=== PATIENT | male | born 1940 | race Caucasian/White ===

== ENCOUNTER 2018-03-11 07:06 | Inpatient (IN) | payer OTHER, SELFPAY ==
[2018-03-11] VITALS (15 sets, daily range): BP systolic 103–148; BP diastolic 53–89; PULSE 70–90; RESP 13–30; TEMP 36.1–36.8; O2SAT 92–99; BMI 22.4; BMI 21.2; BMI 21.3
--- NOTE | 2018-03-11 07:19 | EKG12_ITS ---
Test Reason : SOB Blood Pressure : / mmHG Vent. Rate : 076 BPM Atrial Rate : 076 BPM P-R Int : 166 ms QRS Dur : 076 ms QT Int : 390 ms P-R-T Axes : 004 054 049 degrees QTc Int : 438 ms Normal sinus rhythm Normal ECG Confirmed by ARMANDO ALFRED, NIK ([id number]), multimedia editor MURPHY BROWN ([id number]) on 03/13/2018 3:22:38 PM Referred By: RUBEN Confirmed By:NIK ROBERTS MD
--- NOTE | 2018-03-11 07:20 | ED.VISSUMM ---
- ER Visit Summary Date of Service: 03/11/18 Chief Complaint: [Shortness of breath] History of Present Illness: The patient is a 77 M [who presents the emergency department with 2 weeks of worsening shortness of breath. He has asthma and COPD. He wakes up gasping for air. He has been using a DuoNeb every 2 hours. He gets a brief period of relief and then it comes back again. He does not wear oxygen at home. He has been using Qvar as well. He has high blood pressure history of prostate cancer and cataract surgery 2 weeks ago. He does not smoke.] Physical Examination: [] Afebrile respiratory rate 30 pulse ox 93% on room air 96% on 2 L WN WD NAD PERRL EOMI MMM NECK supple and nontender, no masses RRR no murmur rub or gallop, no peripheral edema, symmetric radial pulses Patient has mild accessory muscle use, he has mild tachypnea, he has slightly diminished breath sounds with inspiratory and expiratory wheezing ABDOMEN is soft and nontender, normal bowel sounds, no distension, no rebound or guarding SKIN is warm and dry no rashes Alert and Oriented x3, CN II-XII in tact, no motor or sensory deficits, gait normal No lymphadenopathy Test Results: [] Emergency Department Course and Treatment: [Patient was given DuoNeb and 2 albuterol's. He was given Solu-Medrol. Screening labs show a mild leukopenia and anemia. Chest x-ray shows no acute process. Patient has no infectious symptoms. He has been doing his nebulizers every 2 hours at home he came in with mild respiratory distress. I think that he requires admission at this time. Spoke with the hospitalist to evaluate the patient for admission.] Treatment Plan: [] Disposition: [Admit] Impression: [COPD exacerbation] This note was generated with [employer] dictation software. It may contain incorrect words, spelling, and punctuation that were not noted in review of the chart prior to signing ED Disposition - Plan for ED Patient: Chief Complaint: Shortness of Breath
[2018-03-11] MEDS: Albuterol 2.5 MG/3 ML VIAL.NEB. INHALATION ×3 (07:29)
[2018-03-11] MEDS: Ipratropium/Albuterol Sulfate 3 ML AMPUL.NEB INHALATION ×5 (07:29→22:57)
[2018-03-11] MEDS: MethylPREDNISolone 125 MG/2 ML Vial IV (07:34)
[2018-03-11 07:40] LABS: Absolute Lymphocyte Count 0.66 X10^3/ul (0.83-4.51); Absolute Neutrophil Count 2.4 X10^3/uL (2.0-7.7); Basophil# 0.02 X10^3/uL; Basophil% 0.5 % (0-1); Eosinophil# 0.58 X10^3/uL; Eosinophils% 13.9 % (0-5); Hematocrit 37.6 % (40-54); Hemoglobin 12.7 g/dl (13.0-16.5); Lymphocyte # 0.66 X10^3/ul (4.0); Lymphocyte % 15.8 % (19-41); Mean Corp Hgb Conc 33.8 g/gl (32-36); Mean Corpuscular Hgb 31.1 pg (27.0-32.0); Mean Corpuscular Volume 92.2 fL (80-94); Mean Platelet Vol. 9.5 fl (6.2-12.0); Monocyte# 0.48 X10^3/uL; Monocyte% 11.5 % (0-10); Neutrophil # 2.43 X10^3/uL (2.7-7.7); Neutrophil % 58.1 % (47-70); Platelet Count 193 K/mm3 (150-450); RBC Distribution Width CV 12.4 % (11.6-14.6); Red Blood Count 4.08 M/mm3 (4.6-6.2); White Blood Count 4.2 K/mm3 (4.4-11.0)
[2018-03-11 07:43] LABS: POSITIVE COUNT NO; POSITIVE DIFFERENTIAL NO; POSITIVE MORPHOLOGY NO
[2018-03-11 07:54] LABS: Anion Gap 10 (5-15); BUN 18 mg/dL (7-18); BUN/Creat Ratio 15.9 RATIO (10-20); Calcium,Total 8.5 mg/dL (8.5-10.1); Chloride 101 mmol/L (98-107); Creatinine, Serum 1.13 mg/dL (0.70-1.30); EST Glomerular Filtration Rate 67 mL/min (>60); Est Glom Filt Rate - Afr Amer 81 mL/min (>60); Estimated Creatinine Clearance 47.42 ml/min; Glucose 145 mg/dL (74-106); Potassium 4.1 mmol/L (3.5-5.1); Sodium Level 135 mmol/L (136-145)
--- NOTE | 2018-03-11 08:10 | RAD_ITS ---
STUDY: X-RAY CHEST REASON FOR EXAM: Male, 77 years old. Cough. Shortness of breath. TECHNIQUE: PA and lateral views. COMPARISON: None. FINDINGS: All pulmonary hyperinflation with flattening of the hemidiaphragms suggestive of COPD. No suspicious pulmonary nodules or infiltrates. There is no demonstrated pleural abnormality. Normal size heart. Normal mediastinum and jf. Normal visualized pulmonary arteries. Normal visualized aortic arch and descending thoracic aorta. Mild anterior wedging of T8 down to T12 vertebral bodies may be secondary to remote injury. Normal visualized ribs, clavicles, and shoulders. There is no demonstrated abnormality of the visualized soft tissue structures of the upper abdomen. RAD/Chest PA and Lateral IMPRESSION: 1. No acute cardiopulmonary pathology. 2. COPD. 3. Mild anterior wedging of T8 down to T12 vertebral bodies may be secondary to remote injury. Electronically Signed: Cachorro Barber MD at 9:42 EDT , Service support ,
--- NOTE | 2018-03-11 08:54 | HP.PCM_ITS ---
Problem List (1) Asthmatic bronchitis Status: Acute (2) Asthma Status: Chronic Qualifiers: Asthma severity: moderate (3) Hypertension Status: Chronic Qualifiers: Hypertension type: essential hypertension Qualified Code(s): I10 - Essential (primary) hypertension History of Present Illness Date of Admission: 03/11/18 Chief Complaint: Shortness of breath The patient is a 77 year old M past medical history significant for hypertension , moderate persistent asthma who presented with shortness of breath. Patient symptoms started 2 days prior to coming in. He had apparently uses home treatment without much improvement. In view of worsening symptoms patient presented to the emergency department.. In the emergency department patient was found to be significantly tachypneic did receive aerosol treatment without much improvement decision was therefore made to admit patient for subsequent management in the hospital. Past Medical History Past Medical History (Chronic Problems): Chronic Problems Asthma (Chronic) Hypertension (Chronic) Allergies acetaminophen [From Tylenol] Allergy (Verified 03/11/18 07:10) Unknown codeine Allergy (Verified 03/11/18 07:10) Unknown levofloxacin [From Levaquin] Allergy (Verified 03/11/18 07:10) Unknown Tetracyclines Allergy (Verified 03/11/18 07:10) Unknown Home Medications: Ambulatory Orders Medication Instructions Recorded Albuterol IH (ProAir) [Proair Hfa 2 puff INHALATION Q4H PRN PRN 03/11/18 (SP)Vent Pts] Beclomethasone Diprop Inhaler 1 puff INHALATION BID 03/11/18 [Qvar 80 Mcg Inhaler] Ketorolac Tromethamine [Acular LS] 1 drop LEFT EYE 4X/DAY 03/11/18 Losartan Potassium [Cozaar] 50 mg PO DAILY 03/11/18 Lives: Spouse/ Significant Other Smoking Status: Never smoker - *Family History Maternal History Items: No pertinent history Review of Systems Constitutional: Denies: Anorexia, Chills, Fever, Night Sweats, Weight Change HEENT: Denies: Head Aches, Sinus Congestion, Sinus Drainage Cardiovascular: Denies: Chest Pain, Orthopnea, Palpitations, Paroxysmal Noc. Dyspnea Respiratory: Reports: Shortness of Breath, Shortness of breath upon exertion, Wheezing. Denies: Cough Gastrointestinal: Denies: Abdominal Pain, Hematemesis, Hematochezia, Nausea, Melena, Vomiting Genitourinary: Denies: Dysuria, Frequency, Hematuria, Urgency Musculoskeletal: Denies: Joint Pain, Joint Tenderness Skin: Denies: Rash Neurological: Denies: Focal weakness, Numbness, Tingling Psychiatric: Denies: Homicidal Ideations, Suicidal Ideations Hematologic/ Lymphatic: Denies: Easy Bruising, Easy Bleeding VTE Information - Inpt Only VTE Present on Admission: No VTE Mechan Device Prophylaxis: Knee High KITA Hose VTE Pharm Prophylaxis ordered?: Yes Patient Problems: Active and Suspected Problems Asthmatic bronchitis (Acute) Objective: GENERAL: dyspnea HEENT: Clear conjunctiva, NECK; supple, normal thyroid, no distended JVD. CHEST: Markedly diminished to auscultation with bilateral wheezing HEART: Regular S1 S2, no audible murmurs ABDOMEN: soft, non-tender, normoactive bowel sounds, RECTAL: deferred EXTREMITIES: No edema, no clubbing, no cyanosis. 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 SKIN: No Rash - Physical Exam Vital Signs Temp Pulse Resp BP Pulse Ox 97.0 F L 70 13 103/78 98 03/11/18 07:08 03/11/18 08:47 03/11/18 08:47 03/11/18 08:47 03/11/18 08:47 Oxygen Flow Rate (L/min) 2 Oxygen Delivery Method Nasal Cannula Weight: 61.235 kg Body Mass Index (BMI) 22.4 Laboratory Tests Past 24 Hrs 03/11/18 03/11/18 07:30 07:30 WBC 4.2 L RBC 4.08 L Hgb 12.7 L Hct 37.6 L MCV 92.2 MCH 31.1 MCHC 33.8 RDW 12.4 RDW Differential 41.0 Plt Count 193 MPV 9.5 Immature Gran % (Auto) 0.200 Neut % (Auto) 58.1 Lymph % (Auto) 15.8 L Bleckley % (Auto) 11.5 H Eos % (Auto) 13.9 H Baso % (Auto) 0.5 Absolute Neuts (auto) 2.4 Absolute Lymphs (auto) 0.66 L Total Counted Not Reportable Sodium 135 L Potassium 4.1 Chloride 101 Carbon Dioxide 24.0 Anion Gap 10 BUN 18 Creatinine 1.13 Estim Creat Clear Calc 47.42 Est GFR (MDRD) Af Amer 81 Est GFR (MDRD) Non-Af 67 BUN/Creatinine Ratio 15.9 Glucose 145 H Calcium 8.5 Assessment/Plan All Active Problems Asthmatic bronchitis (Acute) Patient is a 77-year-old gentleman presented with progressive shortness of breath 1. Acute asthmatic bronchitis exacerbation: Patient has been admitted to regular nursing floor managed with systemic steroid, bronchodilator therapy as well as antibiotics. Patient was placed on oxygen titrated to keep oxygen saturation greater than 90 2. Hypertension-blood pressure controlled, home medications continued with dose adjustment as needed 3. Mild intermittent asthma patient is scheduled to follow-up with pulmonary medicine as outpatient 4. DVT prophylaxis SC Lovenox Code Visit Inpatient E&M: 12728 Subs Hosp L3
--- NOTE | 2018-03-11 09:02 | NURSING ---
ER charge nurse informed ok for transfer to unit.
[2018-03-11] MEDS: guaiFENesin 1,200 MG Tablet 1200 MG PO ×2 (12:04→21:36)
[2018-03-11] MEDS: Enoxaparin 40 MG/0.4 ML Syringe SC (12:05)
[2018-03-12] VITALS (9 sets, daily range): BP systolic 121–134; BP diastolic 57–77; PULSE 55–80; RESP 16–22; TEMP 36.7–36.9; O2SAT 94–96
[2018-03-12] MEDS: Ipratropium/Albuterol Sulfate 3 ML AMPUL.NEB INHALATION ×5 (02:42→20:41)
[2018-03-12] MEDS: 0.9% NaCl Peripheral Flush Adult/Peds IV ×3 (06:12→13:15)
[2018-03-12] MEDS: Acetaminophen 325 MG Tablet 650 MG PO (06:30)
[2018-03-12] MEDS: guaiFENesin 1,200 MG Tablet 1200 MG PO ×2 (07:36→22:03)
[2018-03-12] MEDS: Losartan Potassium 50 MG Tablet PO (07:36)
--- NOTE | 2018-03-12 08:18 | PN_ITS ---
Patient Problems: Active and Suspected Problems Asthmatic bronchitis (Acute) Subjective: Patient is a 77-year-old gentleman presented with progressive shortness of breath he should complains of having had episodes of respiratory distress during the evening. Did discuss with patient possibility of being discharged home tomorrow 03/13/2018, if his condition remains stable Objective: GENERAL: dyspnea HEENT: Clear conjunctiva, NECK; supple, normal thyroid, no distended JVD. CHEST: Markedly diminished to auscultation with bilateral wheezing HEART: Regular S1 S2, no audible murmurs ABDOMEN: soft, non-tender, normoactive bowel sounds, RECTAL: deferred EXTREMITIES: No edema, no clubbing, no cyanosis. 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 SKIN: No Rash Vitals/I&O's: Vital Signs Temp Pulse Resp BP Pulse Ox 98.4 F 72 16 127/68 H 95 03/12/18 07:29 03/12/18 07:29 03/12/18 07:29 03/12/18 07:29 03/12/18 07:29 Oxygen Flow Rate (L/min) 2 Oxygen Delivery Method Room Air Weight: 57.9 kg Body Mass Index (BMI) 21.2 Intake and Output for Last 24 Hours 03/10/18 03/11/18 03/12/18 23:59 23:59 23:59 Intake Total 863 / 863 760 / 760 Balance 863 / 863 760 / 760 Current Medications Acetaminophen (Tylenol) 650 mg PO Q6H PRN PRN PRN Reason: PAIN Last Admin: 03/12/18 06:30 Dose: 650 mg Al Hydroxide/Mg Hydroxide (Mylanta Ii) 30 ml PO Q6H PRN PRN PRN Reason: Gastric Burning Albuterol Sulfate (Ventolin Aerosols) 2.5 mg INHALATION Q2H PRN PRN PRN Reason: SHORTNESS OF BREATH Albuterol/Ipratropium (Duoneb) 3 ml INHALATION Q4H.RT [facility] Last Admin: 03/12/18 07:04 Dose: 3 ml Docusate Sodium (Colace) 200 mg PO BID PRN PRN PRN Reason: Constipation Enoxaparin Sodium (Lovenox) 40 mg SC DAILY@1000 [facility] Last Admin: 03/11/18 12:05 Dose: 40 mg Guaifenesin (Mucinex) 1,200 mg PO BID [facility] Last Admin: 03/12/18 07:36 Dose: 1,200 mg Azithromycin 500 mg/ Dextrose 255 mls @ 250 mls/hr IV Q24 [facility] Stop: 03/13/18 11:02 Last Admin: 03/11/18 12:08 Dose: 250 mls/hr Ketorolac Tromethamine (Acular Ls) 1 drop LEFT EYE 0800,1200,1700,2200 [facility] Last Admin: 03/12/18 07:37 Dose: 1 drop Losartan Potassium (Cozaar) 50 mg PO DAILY [facility] Last Admin: 03/12/18 07:36 Dose: 50 mg Magnesium Hydroxide (Milk Of Magnesia) 30 ml PO DAILY PRN PRN PRN Reason: Constipation Methylprednisolone (Solu-Medrol) 40 mg IV Q8 [facility] Stop: 03/12/18 14:01 Last Admin: 03/12/18 06:12 Dose: 40 mg Prednisone () 40 mg PO DAILY@0800 [facility] Prochlorperazine Edisylate (Compazine Iv) 10 mg IV Q6H PRN PRN PRN Reason: Nausea/Vomiting Sodium Chloride () 5 - 30 ml IV UD PRN PRN Reason: SALINE FLUSH Last Admin: 03/12/18 06:12 Dose: 10 ml Zolpidem Tartrate (Ambien (Generic)) 5 mg PO QHS PRN PRN PRN Reason: INSOMNIA Medical Necessity - Tobacco Use Smoking Status: Never smoker Assessment/Plan All Active Problems Asthmatic bronchitis (Acute) Patient is a 77-year-old gentleman presented with progressive shortness of breath 1. Acute asthmatic bronchitis exacerbation: Patient has been admitted to regular nursing floor managed with systemic steroid, bronchodilator therapy as well as antibiotics. Patient was placed on oxygen titrated to keep oxygen saturation greater than 90 2. Hypertension-blood pressure controlled, home medications continued with dose adjustment as needed 3. Mild intermittent asthma patient is scheduled to follow-up with pulmonary medicine as outpatient 4. DVT prophylaxis SC Lovenox Code Visit Inpatient E&M: 34436 [facility] Hosp L3
[2018-03-12] MEDS: Enoxaparin 40 MG/0.4 ML Syringe SC (10:32)
--- NOTE | 2018-03-12 15:08 | CM.UR ---
Met face to face with patient. See attached RN CM assmt. Denies any anticipated needs. States that Dr. Bala Fournier, PCP had been managing his copd but he is going to follow up with Dr. Mohinder Fournier for his pulmonary now. He has both a portable and a regular nebulizer. Has been pricing out oxygen just in case. states [facility] gave him best [place]. Patient has been weaned to room air. no needs anticipated. Nadine Abdullahi RN, CCM.
[2018-03-13] VITALS (7 sets, daily range): BP systolic 125–131; BP diastolic 65–66; PULSE 72–89; RESP 16–23; TEMP 36.7–36.8; O2SAT 94–99
[2018-03-13] MEDS: Ipratropium/Albuterol Sulfate 3 ML AMPUL.NEB INHALATION ×3 (03:19→10:50)
[2018-03-13] MEDS: Albuterol 2.5 MG/3 ML VIAL.NEB. INHALATION (03:22)
[2018-03-13] MEDS: predniSONE 20 MG Tablet 40 MG PO (07:54)
[2018-03-13] MEDS: Losartan Potassium 50 MG Tablet PO (09:44)
[2018-03-13] MEDS: guaiFENesin 1,200 MG Tablet 1200 MG PO (09:44)
[2018-03-13] MEDS: Enoxaparin 40 MG/0.4 ML Syringe SC (09:44)
--- NOTE | 2018-03-13 10:24 | PCM.PN.HOSP ---
Patient Problems: Active and Suspected Problems Asthmatic bronchitis (Acute) Subjective: feels good. ready to go home. Vitals/I&O's: Vital Signs Temp Pulse Resp BP Pulse Ox 36.7 C 72 20 H 131/66 H 97 03/13/18 09:26 03/13/18 09:26 03/13/18 09:26 03/13/18 09:26 03/13/18 09:26 Oxygen Flow Rate (L/min) 2 Oxygen Delivery Method Room Air Weight: 57.9 kg Body Mass Index (BMI) 21.2 Intake and Output for Last 24 Hours 03/11/18 03/12/18 03/13/18 23:59 23:59 23:59 Intake Total 863 / 863 2009 600 / 600 Balance 863 / 863 2009 600 / 600 General: Alert, No apparent distress HEENT: Atraumatic, Normocephalic Oral: Moist Mucosa, No Gingival or Mucosal Lesions/ Ulcerations Neck: No Nodes, Thyroid Normal Size and Texture Lungs: Clear to auscultation, Normal air movement, No rhonchi, Wheezes Cardiovascular: Regular rate, Regular Rhythm, Normal S1, Normal S2 Abdomen: Bowel Sounds Present, Soft, Non Tender, Non-Distended, No Hepato-splenomegaly Microbiology Past 72 Hours 03/12/18 10:30 Sputum, Expectorated/Coughed Gram Stain - Final 03/12/18 10:30 Sputum, Expectorated/Coughed Respiratory Culture - Preliminary Appears to be normal respiratory dewey. Further studies to follow. 03/12/18 11:28 Mucosa - Nose Respiratory Panel (PCR) - Final Current Medications Acetaminophen (Tylenol) 650 mg PO Q6H PRN PRN PRN Reason: PAIN Last Admin: 03/12/18 06:30 Dose: 650 mg Al Hydroxide/Mg Hydroxide (Mylanta Ii) 30 ml PO Q6H PRN PRN PRN Reason: Gastric Burning Albuterol Sulfate (Ventolin Aerosols) 2.5 mg INHALATION Q2H PRN PRN PRN Reason: SHORTNESS OF BREATH Last Admin: 03/13/18 03:22 Dose: 2.5 mg Albuterol/Ipratropium (Duoneb) 3 ml INHALATION Q4H.RT [facility] Last Admin: 03/13/18 07:03 Dose: 3 ml Docusate Sodium (Colace) 200 mg PO BID PRN PRN PRN Reason: Constipation Enoxaparin Sodium (Lovenox) 40 mg SC DAILY@1000 [facility] Last Admin: 03/13/18 09:44 Dose: 40 mg Guaifenesin (Mucinex) 1,200 mg PO BID [facility] Last Admin: 03/13/18 09:44 Dose: 1,200 mg Azithromycin 500 mg/ Dextrose 255 mls @ 250 mls/hr IV Q24 [facility] Stop: 03/13/18 11:02 Last Admin: 03/13/18 09:43 Dose: 250 mls/hr Ketorolac Tromethamine (Acular Ls) 1 drop LEFT EYE 0800,1200,1700,2200 [facility] Last Admin: 03/13/18 07:55 Dose: 1 drop Losartan Potassium (Cozaar) 50 mg PO DAILY [facility] Last Admin: 03/13/18 09:44 Dose: 50 mg Magnesium Hydroxide (Milk Of Magnesia) 30 ml PO DAILY PRN PRN PRN Reason: Constipation Prednisone () 40 mg PO DAILY@0800 [facility] Last Admin: 03/13/18 07:54 Dose: 40 mg Prochlorperazine Edisylate (Compazine Iv) 10 mg IV Q6H PRN PRN PRN Reason: Nausea/Vomiting Sodium Chloride () 5 - 30 ml IV UD PRN PRN Reason: SALINE FLUSH Last Admin: 03/12/18 13:15 Dose: 10 ml Zolpidem Tartrate (Ambien (Generic)) 5 mg PO QHS PRN PRN PRN Reason: INSOMNIA Medical Necessity - Tobacco Use Smoking Status: Never smoker Assessment/Plan All Active Problems Asthmatic bronchitis (Acute) 1. acute asthma exacerbation improved continue prednisone, albuterol and Duoneb follow up with pulm as outpt.
--- NOTE | 2018-03-13 10:28 | PCM.DC ---
- Discharge Diagnoses Current Active Problems: Current Active and Chronic Problems Asthma (Chronic) Asthmatic bronchitis (Acute) Hypertension (Chronic) You will use the following diet at home:: No restrictions Your food should be the consistency of: Regular Your liquids should be the consistency of: Regular/Thin Discharge Activity: Return to Normal Activity Call your doctor if you observe: Fever of 101 or Higher, Shortness of breath Allergies/Adverse Reactions: Allergies codeine Allergy (Verified 03/11/18 07:10) Unknown levofloxacin [From Levaquin] Allergy (Verified 03/11/18 07:10) Unknown Tetracyclines Allergy (Verified 03/11/18 07:10) Unknown Medications to take at Discharge Albuterol IH (ProAir) [Proair Hfa] 2 puff INHALATION Q4H PRN PRN 03/11/18 Beclomethasone Diprop Inhaler [Qvar 80 Mcg Inhaler] 1 puff INHALATION BID 03/11/18 Ketorolac Tromethamine [Acular LS] 1 drop LEFT EYE 4X/DAY 03/11/18 Losartan Potassium [Cozaar] 50 mg PO DAILY 03/11/18 Guaifenesin [Mucinex] 1,200 mg PO BID #10 tab 03/13/18 Prednisone 4 tab PO DAILY #16 tab 03/13/18 The following prescriptions were given: Prednisone 4 tab PO DAILY #16 tab Guaifenesin [Mucinex] 1,200 mg PO BID #10 tab Primary Care Physician: Bala Fournier [Primary Care Provider] - Within 2 Weeks Test Results: Test results from this visit will be discussed in further detail at your follow-up appointment, if applicable. Please Follow Up With: Emmanuel Barboza MD When: 1-2 months. Proposed Discharge Date: 03/13/18
--- NOTE | 2018-03-13 10:29 | PCM.DC.SUM ---
Discharge Date and Diagnosis - Problem List Patient Problems: Active and Suspected Problems Asthmatic bronchitis (Acute) Date of Admission: 03/11/18 Date of Discharge: 03/13/18 - Primary Discharge Diagnosis Active and Suspected Problems Asthmatic bronchitis (Acute) - Secondary Discharge Diagnosis Chronic Problems Asthma (Chronic) Hypertension (Chronic) Hospital Course and Treatment Imaging Results: Clinical Impression(s) from Imaging Studies Chest X-Ray 03/11/18 08:10 IMPRESSION: 1. No acute cardiopulmonary pathology. 2. COPD. 3. Mild anterior wedging of T8 down to T12 vertebral bodies may be secondary to remote injury. Electronically Signed: Cachorro Barber MD at 9:42 EDT , Service support , Operations: None Procedures: None Summary of Care Provided: The patient is a 77 year old M presents with shortness of breath. Patient had the symptoms 2 days prior to arrival. Patient was noted to be tachypneic in the emergency room and did not respond to aerosol treatment. Patient was subsequently admitted. Over the course of the patient's hospitalization he was started on prednisone as well as azithromycin and bronchodilators. Chest x-ray was negative for any infiltrate. Today, the patient is 99% on room air and he is feeling very well at this time. Patient be discharged with 4 more 2 days of prednisone to complete a 5 day course. Patient is instructed to follow-up with pulmonology for evaluation of his asthma. [] Discharge Diet: No Restrictions Discharge Activity: Return to Normal Activity Call your doctor if you observe: Fever of 101 or Higher, Shortness of breath Home Medications: Medications to take at Discharge Albuterol IH (ProAir) [Proair Hfa] 2 puff INHALATION Q4H PRN PRN 03/11/18 Beclomethasone Diprop Inhaler [Qvar 80 Mcg Inhaler] 1 puff INHALATION BID 03/11/18 Ketorolac Tromethamine [Acular LS] 1 drop LEFT EYE 4X/DAY 03/11/18 Losartan Potassium [Cozaar] 50 mg PO DAILY 03/11/18 Guaifenesin [Mucinex] 1,200 mg PO BID #10 tab 03/13/18 Prednisone 4 tab PO DAILY #16 tab 03/13/18 Following Prescrptions Were Given to Patient: Prednisone 4 tab PO DAILY #16 tab Guaifenesin [Mucinex] 1,200 mg PO BID #10 tab Primary Care Physician: Bala Fournier [Primary Care Provider] - Within 2 Weeks Please Follow Up With: Emmanuel Barboza MD When: 1-2 months. Disposition: Home Minutes spent on discharge:: 28 Patient Condition:: Good Medical Necessity - Tobacco Use Smoking Status: Never smoker Meaningful Use Info Meaningful Use Diagnoses (Choose all that apply): None applicable Code Visit Inpatient E&M: 79518 Disch Hosp
--- NOTE | 2018-03-13 10:32 | DS.PCM_ITS ---
Discharge Date and Diagnosis - Problem List Patient Problems: Active and Suspected Problems Asthmatic bronchitis (Acute) Date of Admission: 03/11/18 Date of Discharge: 03/13/18 - Primary Discharge Diagnosis Active and Suspected Problems Asthmatic bronchitis (Acute) - Secondary Discharge Diagnosis Chronic Problems Asthma (Chronic) Hypertension (Chronic) Hospital Course and Treatment Imaging Results: Clinical Impression(s) from Imaging Studies Chest X-Ray 03/11/18 08:10 IMPRESSION: 1. No acute cardiopulmonary pathology. 2. COPD. 3. Mild anterior wedging of T8 down to T12 vertebral bodies may be secondary to remote injury. Electronically Signed: Cachorro Barber MD at 9:42 EDT , Service support , Operations: None Procedures: None Summary of Care Provided: The patient is a 77 year old M presents with shortness of breath. Patient had the symptoms 2 days prior to arrival. Patient was noted to be tachypneic in the emergency room and did not respond to aerosol treatment. Patient was subsequently admitted. Over the course of the patient's hospitalization he was started on prednisone as well as azithromycin and bronchodilators. Chest x-ray was negative for any infiltrate. Today, the patient is 99% on room air and he is feeling very well at this time. Patient be discharged with 4 more 2 days of prednisone to complete a 5 day course. Patient is instructed to follow-up with pulmonology for evaluation of his asthma. [] Discharge Diet: No Restrictions Discharge Activity: Return to Normal Activity Call your doctor if you observe: Fever of 101 or Higher, Shortness of breath Home Medications: Medications to take at Discharge Albuterol IH (ProAir) [Proair Hfa] 2 puff INHALATION Q4H PRN PRN 03/11/18 Beclomethasone Diprop Inhaler [Qvar 80 Mcg Inhaler] 1 puff INHALATION BID Ketorolac Tromethamine [Acular LS] 1 drop LEFT EYE 4X/DAY 03/11/18 Losartan Potassium [Cozaar] 50 mg PO DAILY 03/11/18 Guaifenesin [Mucinex] 1,200 mg PO BID #10 tab 03/13/18 Prednisone 4 tab PO DAILY #16 tab 03/13/18 Following Prescrptions Were Given to Patient: Prednisone 4 tab PO DAILY #16 tab Guaifenesin [Mucinex] 1,200 mg PO BID #10 tab Primary Care Physician: Bala Fournier [Primary Care Provider] - Within 2 Weeks Please Follow Up With: Emmanuel Barboza MD When: 1-2 months. Disposition: Home Minutes spent on discharge:: 28 Patient Condition:: Good Medical Necessity - Tobacco Use Smoking Status: Never smoker Meaningful Use Info Meaningful Use Diagnoses (Choose all that apply): None applicable Code Visit Inpatient E&M: 26135 Disch Hosp
== END 2018-03-13 13:45 | disposition home or self-care (01) | DRG 203 ==
LOC: ED 08:08 → MS3 09:09
PROVIDERS: Admitting Provider Internal Medicine; Emergency Provider Emergency Medicine; Family Provider Family Medicine; PCP Family Medicine
DX: J45.21 Mild intermittent asthma with (acute) exacerbation (principal); I10 Essential (primary) hypertension
CPT/HCPCS: 71046; 80048; 85025; 87070; 87205; 87633; 93005; 94640; 94667; 94668; 99283; J7040; A4216

== ENCOUNTER → 2018-04-13 07:30 | Outpatient (CLI) | payer OTHER, SELFPAY ==
--- NOTE | 2018-04-13 12:11 | PFTCOMP ---
COMPLETE PULMONARY FUNCTION TEST INTERPRETATION Brief HPI: Patient is a 78 year old male, currently under the care of myself, who presents to [facility] for complete pulmonary function tests secondary to diagnosis of asthma. Respiratory therapist reports good effort and reproducible results. Interpretation: Forced expiration spirometry shows a mild large airways obstructive ventilatory defect with an FEV1 of 81% predicted. There is a significant bronchodilator response in FEV1 by ATS criteria. Spirograms are of good quality and plateau slowly, indicating slowly emptying areas of the lungs. The respiratory flow volume loop shows decreased expiratory flow rates at all lung volumes consistent with airway obstruction. Lung volumes by body plethysmography show a normal total lung capacity at 5.96 L, 115% predicted. All other lung volumes are within normal limits. Diffusion capacity by carbon monoxide is normal at 97% predicted. The airway resistance is normal. No previous pulmonary function tests were available for review. Impression: Partially reversible mild large airways obstructive ventilatory defect with preserved diffusion capacity.
--- NOTE | 2018-04-13 12:14 | PFTCOMP_ITS ---
COMPLETE PULMONARY FUNCTION TEST INTERPRETATION Brief HPI: Patient is a 78 year old male, currently under the care of myself, who presents to [facility] for complete pulmonary function tests secondary to diagnosis of asthma. Respiratory therapist reports good effort and reproducible results. Interpretation: Forced expiration spirometry shows a mild large airways obstructive ventilatory defect with an FEV1 of 81% predicted. There is a significant bronchodilator response in FEV1 by ATS criteria. Spirograms are of good quality and plateau slowly, indicating slowly emptying areas of the lungs. The respiratory flow volume loop shows decreased expiratory flow rates at all lung volumes consistent with airway obstruction. Lung volumes by body plethysmography show a normal total lung capacity at 5.96 L , 115% predicted. All other lung volumes are within normal limits. Diffusion capacity by carbon monoxide is normal at 97% predicted. The airway resistance is normal. No previous pulmonary function tests were available for review. Impression: Partially reversible mild large airways obstructive ventilatory defect with preserved diffusion capacity.
== END ==
PROVIDERS: Family Provider Family Medicine; PCP Family Medicine; Visit Provider Internal Medicine Critical Care Medicine
DX: J45.909 Unspecified asthma, uncomplicated (principal)
CPT/HCPCS: 94060; 94726; 94729

== ENCOUNTER 2021-01-31 10:56 | Inpatient (IN) | payer OTHER, SELFPAY ==
[2021-01-31] VITALS (7 sets, daily range): BP systolic 126–164; BP diastolic 52–78; PULSE 72–80; RESP 16–18; TEMP 36.5–37.1; O2SAT 95–98; BMI 23.3; BMI 23.1
--- NOTE | 2021-01-31 11:07 | EDS_ITS ---
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 Patient states he has asthma/COPD, he has maintenance inhalers and rescue inhaler, states it has been a little worse than usual lately so he decided to take a single dose of oral prednisone this morning although he has taken none in the last week or 2. [facility] Medical History (Updated 01/31/21 @ 12:[address] Waldo Braga MD) Abnormal liver CT Anemia Asthma Asthmatic bronchitis BPH (benign prostatic hyperplasia) COPD (chronic obstructive pulmonary disease) HLD (hyperlipidemia) Hypertension Hyponatremia Insomnia Prostate cancer Home Medications albuterol sulfate 2 puff INHALATION Q4H PRN PRN 03/11/18 [History Last Taken Unknown] albuterol sulfate 2.5 mg INHALATION Q4H PRN 03/31/18 [History Last Taken Unknow n] cetirizine 10 mg tablet 5 mg PO QDAY PRN 03/31/18 [History Last Taken Unknown] finasteride 5 mg tablet 5 mg PO QDAY 03/31/18 [History Last Taken Unknown] hydrochlorothiazide 25 mg tablet 25 mg PO QAM 03/31/18 [History Last Taken Unknown] tamsulosin 0.4 mg capsule 0.4 mg PO QDAY 03/31/18 [History Last Taken Unknown] trazodone 50 mg tablet 50 mg PO QDAY 03/31/18 [History Last Taken Unknown] valerian root 100 mg capsule 100 mg PO TID-QID PRN 03/31/18 [History Last Taken Unknown] ipratropium 0.5 mg-albuterol 3 mg (2.5 mg base)/3 mL nebulization soln 3 ml INHALATION Q8H PRN #180 ml 04/05/18 [Rx Last Taken Unknown] losartan 100 mg tablet 50 mg PO QDAY tab 04/05/18 [History Last Taken Unknown] budesonide-formoterol HFA 160 mcg-4.5 mcg/actuation aerosol inhaler 2 puff INHALATION Q12H #10.2 g 07/25/18 [Rx Last Taken Unknown] mometasone-formoterol [Dulera] 2 puff INHALATION DAILY 01/31/21 [History Last Taken Unknown] Allergy/AdvReac Type Severity Reaction Status Date / Time codeine Allergy Unknown Verified 01/31/21 11:26 levofloxacin [From Levaquin] Allergy Unknown Verified 01/31/21 11:26 morphine Allergy goes Verified 01/31/21 11:26 crazy Tetracyclines Allergy Unknown Verified 01/31/21 11:26 Surgical History H/O colonoscopy Social History Smoking Status: Never smoker ROS ROS ED Constitutional Constitutional ED: Denies chills or fever(s) Eyes Eyes: Denies change in vision or diplopia ENT ENT ED: Denies rhinorrhea or sore throat Cardiovascular Cardiovascular: Denies chest pain or palpitations Respiratory/Chest Respiratory/Chest: Reports as per HPI and dyspnea; Denies cough Gastrointestinal Gastrointestinal: Denies abdominal pain, diarrhea, nausea or vomiting Genitourinary Genitourinary ED: Denies dysuria or hematuria Musculoskeletal Musculoskeletal: Reports as per HPI and extremity pain; Denies back pain or neck pain Integumentary Denies abscess or rash Neurologic Neurologic: Denies headache(s), paresthesias or weakness Psychiatric Psychiatric: Denies anxiety or suicidal thoughts EXAM Physical Exam Const Vital Signs: 01/31/21 10:57 01/31/21 11:27 Temperature 97.7 F L Temperature Source Oral Pulse Rate 77 Respiratory Rate 16 Respiratory Effort Normal Non-Labored Respiratory Depth Normal Respiratory Pattern Normal Blood Pressure 142/78 H Blood Pressure Mean 99 Pulse Ox 98 Oxygen Delivery Method Room Air Room Air Positive well nourished and well developed General Appearance ED: well developed and NAD HEENT Reports moist mucous membranes normocephalic and atraumatic Eyes PERRL and EOMs intact bilaterally Neck full ROM and supple Resp normal respiratory effort and clear to auscultation bilaterally Resp Narrative: Diffusely diminished Effort and Inspection: able to speak in complete sentences Cardio regular rate, regular rhythm and no murmurs GI non-tender and non-distended Auscultation: normoactive bowel sounds Palpation: soft Back/Spine no CVA tenderness General Back: other FROM Extremity normal to inspection Extremity Narrative: Patient resistant to move his right hip but has good range of motion of the right knee, ankle, and all other extremities throughout. Denies pain in the groin. Tender at the right ischial tuberosity, no tenderness of the greater trochanter or the ASIS. Pelvis stable to AP compression. General Extremety ED: Yes tenderness; Negative for edema or pulses abnormal General Extremity: Negative for edema or pulses abnormal Neuro oriented x3, CN's II-XII intact bilaterally and no sensory deficits noted Sensorium / Orientation: awake and alert Motor Exam: strength 5/5 throughout Skin no rashes or lesions noted and no wounds MDM MDM MDM Narrative Medical decision making narrative: On my interpretation, 1 view chest x-ray is normal and 3 view right hip/pelvis x-ray shows displaced intertrochanteric fracture of the right hip, as noted by radiology as well. Patient's pain is controlled with fentanyl. Preoperative work-up was obtained, discussed with Dr. Peter Diaz and hospitalist for admission. Lab Data Attestation: I reviewed the patient's lab results. Labs: Laboratory Results - last 24 hr 01/31/21 01/31/21 11:15 11:15 WBC 7.2 RBC 3.88 L Hgb 11.8 L Hct 36.1 L MCV 93.0 MCH 30.4 MCHC 32.7 RDW Std Deviation 43.9 RDW Coeff of Nasir 12.9 Plt Count 242 MPV 10.8 Immature Gran % (Auto) 0.700 Neut % (Auto) 90.4 H Lymph % (Auto) 6.5 L [place] % (Auto) 2.3 Eos % (Auto) 0.0 Baso % (Auto) 0.1 Absolute Neuts (auto) 6.5 Absolute Lymphs (auto) 0.47 L Nucleated RBC % 0 Differential Comment SCANNED Sodium 135 L Potassium 4.5 Chloride 103 Carbon Dioxide 25.0 Anion Gap 7 BUN 22 H Creatinine 0.96 Estim Creat Clear Calc 53.39 Est GFR (MDRD) Af Amer 97 Est GFR (MDRD) Non-Af 80 BUN/Creatinine Ratio 22.9 H Glucose 152 H Calcium 8.4 L Radiography Diagnostic Testing: Radiology Impression Chest X-Ray 01/31/21 11:30 IMPRESSION: Normal x-ray examination of the chest. Electronically Signed: Lowell Kenny MD at 12:09 EDT Tel , Service support , Hip/Pelvis X-Ray 01/31/21 11:30 IMPRESSION: Acute fracture of the intertrochanteric right femur with avulsion of the lesser trochanter per Electronically Signed: Lowell Kenny MD at 12:09 EDT Tel , Service support , Discharge Plan Dx/Rx/DC Orders Clinical Impression: Closed intertrochanteric fracture of right hip Disposition Disposition: Acute Care Hospital [facility]
[2021-01-31] MEDS: fentaNYL 100 MCG/2 ML Ampul 50 MCG IV ×2 (11:22→12:48)
[2021-01-31 11:29] LABS: Absolute Lymphocyte Count 0.47 X10^3/uL (0.83-4.51); Absolute Neutrophil Count 6.5 X10^3/uL (2.0-7.7); Basophil# 0.01 X10^3/uL; Basophil% 0.1 % (0-1); Hematocrit 36.1 % (40-54); Hemoglobin 11.8 g/dL (13.0-16.5); Lymphocyte # 0.47 X10^3/ul (0.83-4.51); Lymphocyte % 6.5 % (19-41); Mean Corp Hgb Conc 32.7 g/dL (32-36); Mean Corpuscular Hgb 30.4 pg (27.0-32.0); Mean Platelet Vol. 10.8 fl (6.2-12.0); Monocyte# 0.17 X10^3/uL; Monocyte% 2.3 % (0-10); NRBC Flagged by Analyzer 0 % (0-5); Neutrophil # 6.54 X10^3/uL (2.7-7.7); Neutrophil % 90.4 % (47-70); POSITIVE DIFFERENTIAL YES; Platelet Count 242 K/mm3 (150-450); RBC Distribution Width CV 12.9 % (11.6-14.6); RBC Distribution Width SD 43.9 fl (35.1-43.9); Red Blood Count 3.88 M/mm3 (4.6-6.2); White Blood Count 7.2 K/mm3 (4.4-11.0)
--- NOTE | 2021-01-31 11:30 | RAD_ITS ---
STUDY: X-RAY - PELVIS AND RIGHT HIP REASON FOR EXAM: Male, 80 years old. fall injury TECHNIQUE: 3 views of the pelvis and hip. COMPARISON: None. FINDINGS: There is a non-specific bowel gas pattern. Normal visualized soft tissue structures. Normal bilateral iliac wings, sacroiliac joints and visualized sacrum. Normal bilateral superior and inferior pubic rami. Normal pubic symphysis. Normal bilateral ischial tuberosities. Acute fracture of the intertrochanteric proximal right femur with avulsion of the lesser trochanter. Normal acetabulum. Normal hip joint. RAD/HIP, UNI W/ Pelvis 2-3 Views IMPRESSION: Acute fracture of the intertrochanteric right femur with avulsion of the lesser trochanter per Electronically Signed: Lowell Kenny MD at 12:09 EDT Tel , Service support ,
--- NOTE | 2021-01-31 11:30 | RAD_ITS ---
STUDY: X-RAY CHEST REASON FOR EXAM: Male, 80 years old. sob TECHNIQUE: Single AP portable view of the chest. COMPARISON: 03/11/2018 FINDINGS: The lungs are clear and expanded. There is no demonstrated pleural abnormality. Normal size heart. Normal mediastinum and jf. Normal visualized pulmonary arteries. Normal visualized aortic arch and descending thoracic aorta. Normal visualized thoracic spine. Normal visualized ribs, clavicles, and shoulders. There is no demonstrated abnormality of the visualized soft tissue structures of the upper abdomen. RAD/Chest 1 View (Portable) IMPRESSION: Normal x-ray examination of the chest. Electronically Signed: Lowell Kenny MD at 12:09 EDT Tel , Service support ,
[2021-01-31 11:38] LABS: Differential Indicated SCAN CRITERIA MET
[2021-01-31 11:41] LABS: Anion Gap 7 (5-15); BUN 22 mg/dL (7-18); BUN/Creat Ratio 22.9 RATIO (10-20); Calcium,Total 8.4 mg/dL (8.5-10.1); Chloride 103 mmol/L (98-107); Creatinine, Serum 0.96 mg/dL (0.70-1.30); EST Glomerular Filtration Rate 80 mL/min (>60); Est Glom Filt Rate - Afr Amer 97 mL/min (>60); Estimated Creatinine Clearance 53.39 ml/min; Glucose 152 mg/dL (74-106); Potassium 4.5 mmol/L (3.5-5.1); Sodium Level 135 mmol/L (136-145)
[2021-01-31 11:59] LABS: Differential Comment SCANNED
--- NOTE | 2021-01-31 12:12 | EKG12_ITS ---
Test Reason : PRE-OP Blood Pressure : / mmHG Vent. Rate : 071 BPM Atrial Rate : 071 BPM P-R Int : 202 ms QRS Dur : 072 ms QT Int : 406 ms P-R-T Axes : 072 071 070 degrees QTc Int : 441 ms Sinus rhythm with Premature atrial complexes Otherwise normal ECG Confirmed by ARMANDO ALFRED, NIK ([id number]), editor in chief newspaper ENMA KIRK ([id number]) on 02/03/2021 1:46:37 PM Referred By: PILAR/ELBERT Confirmed By:NIK ROBERTS MD
--- NOTE | 2021-01-31 12:16 | HP.PCM.HOS_ITS ---
HPI - General General Date of Admission: 01/31/21 HPI Narrative EV BROWN, is a 80 M witha [facility] as outlined who presents witha complaitnb of mechanical fall. He was using his handcart to move things around, and lost his footing, resulting azucena mechanical fall. He landed on his right hip. He was unable to weight bear, and pain was severe, so he came in to the ED. He has a history of ashtma and COPD for which he uses his inhalers. He says his PCP told him to take oral prednisone when he got short of breath. He last took prednisone this morning after not taking any for the last couple of weeks. In the ED, vitals were essentially stable. WBC was 7.2 with hemoglobin of 11.8 and platelets of 242. Chemistry was remarkable for sodium of 135 which is chronic. X-ray of the right hip showed acute fracture of the intertrochanteric right femur with avulsion of the lesser trochanter. He has been admitted to be managed for acute right hip fracture due to mechanical fall. [facility], [facility] Medical History (Updated 01/31/21 @ 14:00 by Linda Mancera) Abnormal liver CT After cataract of both eyes not obscuring vision Anemia Anxiety Asthma Asthmatic bronchitis Back pain due to injury BiPAP (biphasic positive airway pressure) dependence BPH (benign prostatic hyperplasia) COPD (chronic obstructive pulmonary disease) Deafness in left ear Hearing loss, left Hearing loss, right HLD (hyperlipidemia) Hypertension Hyponatremia Insomnia Prostate cancer Sleep apnea Home Medications albuterol sulfate 2 puff INHALATION Q4H PRN PRN 03/11/18 [History Last Taken Unknown] albuterol sulfate 2.5 mg INHALATION Q4H PRN 03/31/18 [History Last Taken Unknown] ipratropium 0.5 mg-albuterol 3 mg (2.5 mg base)/3 mL nebulization soln 3 ml INHALATION Q8H PRN #180 ml 04/05/18 [Rx Last Taken Unknown] budesonide-formoterol HFA 160 mcg-4.5 mcg/actuation aerosol inhaler 2 puff INHALATION Q12H #10.2 g 07/25/18 [Rx Last Taken Unknown] Complex P 1 tablet PO.IVFORM TID 01/31/21 [History Last Taken Unknown] Exf 1 tab PO.IVFORM TID 01/31/21 [History Last Taken Unknown] Gastro-ulc 1 tablet PO.IVFORM DAILY 01/31/21 [History Last Taken Unknown] Nt Bacta 1 tab PO.IVFORM TID 01/31/21 [History Last Taken Unknown] Oxypower 2 tab PO.IVFORM TID 01/31/21 [History Last Taken Unknown] Para 2 1 tab PO.IVFORM TID 01/31/21 [History Last Taken Unknown] Para1 1 tab PO.IVFORM TID 01/31/21 [History Last Taken Unknown] Pel Immune 1 tab PO.IVFORM TID 01/31/21 [History Last Taken Unknown] Permilung 2 tab PO.IVFORM TID 01/31/21 [History Last Taken Unknown] Pro-Jackie 1 tab PO.IVFORM TID 01/31/21 [History Last Taken Unknown] Xpleen 1 tab PO.IVFORM TID 01/31/21 [History Last Taken Unknown] beclomethasone dipropionate 1 inh INHALATION BID 01/31/21 [History Last Taken Unknown] mometasone-formoterol [Dulera] 2 puff INHALATION DAILY 01/31/21 [History Last Taken Unknown] Allergy/AdvReac Type Severity Reaction Status Date / Time codeine Allergy Unknown Verified 01/31/21 11:26 levofloxacin [From Levaquin] Allergy Unknown Verified 01/31/21 11:26 morphine Allergy goes Verified 01/31/21 11:26 crazy Tetracyclines Allergy Unknown Verified 01/31/21 11:26 Family History (Updated 01/31/21 @ 13:56 by Linda Mancera) Other CVA (cerebral vascular accident) Surgical History (Updated 01/31/21 @ 13:59 by Linda Mancera) H/O colonoscopy History of appendectomy History of left knee replacement History of surgical removal of testicle Social History Smoking Status: Never smoker ROS Constitutional Constitutional: Denies anorexia, change in weight or malaise Eyes Eyes: Denies blurry vision ENT HEENT: Denies nasal discharge or sore throat Cardiovascular Cardiovascular: Denies chest pain, dyspnea on exertion, edema, lightheadedness, orthopnea, palpitations, paroxysmal nocturnal dyspnea, rapid heart rate or syncope Respiratory/Chest Respiratory/Chest: Denies cough, dyspnea, shortness of breath at rest or shortness of breath with exertion Gastrointestinal Gastrointestinal: Denies abdominal pain, melena, nausea or vomiting Genitourinary Genitourinary: Denies burning urination Musculoskeletal Musculoskeletal: Reports joint pain; Denies arthralgias or back pain Neurologic Neurologic: Denies abnormal gait, abnormal speech, numbness or seizures Psychiatric Psychiatric: Denies anxiety Vital Signs Vital Signs Vital Signs: 01/31/21 10:57 01/31/21 11:27 Temperature 97.7 F L Temperature Source Oral Pulse Rate 77 Respiratory Rate 16 Respiratory Effort Normal Non-Labored Respiratory Depth Normal Respiratory Pattern Normal Blood Pressure 142/78 H Blood Pressure Mean 99 Pulse Ox 98 Oxygen Delivery Method Room Air Room Air Weight Weight: 140 lb Body Mass Index (BMI) 23.3 Physical Exam Const alert, oriented x3 and no apparent distress General Appearance: cooperative HEENT normocephalic, head/scalp atraumatic, hearing grossly normal bilaterally and moist oral mucous membranes Eyes PERRL, EOMs intact bilaterally and conjunctivae normal Neck no lymphadenopathy, supple and no JVD Resp normal respiratory effort, no retractions, no use of accessory muscles and clear to auscultation bilaterally Cardio regular rate, regular rhythm, S1 normal heart sound, S2 normal heart sound and no murmurs GI normal to inspection, nondistended, normoactive bowel sounds, soft to palpation, non-tender and non-distended Extremity Extremity Narrative: RLE shortened, externally rotated Peripheral Pulses: Yes pulses 2+ throughout Skin no rashes or lesions noted Neuro oriented x3 Sensorium / Orientation: awake Psych affect normal Lab / Micro Data Result Diagrams: 01/31/21 11:15 01/31/21 11:15 Labs: Laboratory Results - last 24 hr 01/31/21 01/31/21 11:15 11:15 WBC 7.2 RBC 3.88 L Hgb 11.8 L Hct 36.1 L MCV 93.0 MCH 30.4 MCHC 32.7 RDW Std Deviation 43.9 RDW Coeff of Nasir 12.9 Plt Count 242 MPV 10.8 Immature Gran % (Auto) 0.700 Neut % (Auto) 90.4 H Lymph % (Auto) 6.5 L [place] % (Auto) 2.3 Eos % (Auto) 0.0 Baso % (Auto) 0.1 Absolute Neuts (auto) 6.5 Absolute Lymphs (auto) 0.47 L Nucleated RBC % 0 Differential Comment SCANNED Sodium 135 L Potassium 4.5 Chloride 103 Carbon Dioxide 25.0 Anion Gap 7 BUN 22 H Creatinine 0.96 Estim Creat Clear Calc 53.39 Est GFR (MDRD) Af Amer 97 Est GFR (MDRD) Non-Af 80 BUN/Creatinine Ratio 22.9 H Glucose 152 H Calcium 8.4 L Radiology Impression Chest X-Ray 01/31/21 11:30 IMPRESSION: Normal x-ray examination of the chest. Electronically Signed: Lowell Kenny MD at 12:09 EDT Tel , Service support , Hip/Pelvis X-Ray 01/31/21 11:30 IMPRESSION: Acute fracture of the intertrochanteric right femur with avulsion of the lesser trochanter per Electronically Signed: Lowell Kenny MD at 12:09 EDT Tel , Service support , Assessment & Plan Assessment/Plan (1) Closed intertrochanteric fracture of right hip: (2) Asthma: QUALIFIERS: Asthma complication type: uncomplicated Asthma persistence: persistent Asthma severity: moderate Qualified Code(s): J45.40 - Moderate persistent asthma, uncomplicated (3) Hypertension: QUALIFIERS: Hypertension type: essential hypertension Qualified Code(s): I10 - Essential (primary) hypertension PLAN: #Right intertrochanteric hip fracture due to mechanical fall * Admit to med surge with telemetry * PT OT consult. Fall precautions. * Orthopedic surgery consulted. Dr. Brown informed by ED doctor. * P.o. Tylenol, p.o. oxycodone and IV morphine as needed for pain * NSQIP score showed 5.8% risk of serious complication which is below the average risk of 12% for his age as well as 0.1% of cardiac complications which is below the average risk of 1.7%. * Per my discussion with Dr. Brown, patient to have surgery tomorrow morning. * #History of asthma * Says he takes oral prednisone occasionally on the advice of his PCP. His last dose was this morning but prior to that he had not taken any for about 2 weeks. * On breathing treatments with bronchodilators. Give oxygen as needed for shortness of breath. * #Hypertension: on losartan and HCTZ #BPH: on flomax and finasteride DVT prophylaxis: lovenox Code status: full code * Patient and son counseled about differences between full code, DNR CC and DNR CCA. Patient elects to be full code. Total [id number] time 17 minutes. Visit Charges Inpatient E&M: 57531 Init Hosp L3 Procedures Hospitalists Procedures: [id number] Advncd Care Plan 30 Min
[2021-01-31] MEDS: Ketorolac 30 MG/ML Syringe IM (16:01)
[2021-01-31] MEDS: 0.9% Normal Saline 1,000 ML 100 ML IV (16:40)
[2021-01-31] MEDS: Albuterol 2.5 MG/3 ML VIAL.NEB. INHALATION (19:23)
[2021-01-31] MEDS: Budesonide Respules 0.5 MG/2 ML AMPUL.NEB. INHALATION (19:23)
[2021-01-31] MEDS: fentaNYL 100 MCG/2 ML Ampul 25 MCG IV (20:41)
[2021-02-01] VITALS (21 sets, daily range): BP systolic 92–157; BP diastolic 40–96; PULSE 61–84; RESP 16–20; TEMP 36.3–37.1; O2SAT 93–100; BMI 23.1
[2021-02-01] MEDS: 0.9% Normal Saline 1,000 ML 100 ML IV ×2 (02:11→09:54)
[2021-02-01] MEDS: Ketorolac 30 MG/ML Syringe IM ×2 (02:11→09:39)
[2021-02-01] MEDS: fentaNYL 100 MCG/2 ML Ampul 25 MCG IV (05:30)
[2021-02-01 05:45] LABS: Absolute Lymphocyte Count 0.94 X10^3/uL (0.83-4.51); Absolute Neutrophil Count 6.7 X10^3/uL (2.0-7.7); Basophil# 0.03 X10^3/uL; Basophil% 0.3 % (0-1); Eosinophils% 1.1 % (0-5); Hematocrit 29.6 % (40-54); Hemoglobin 9.9 g/dL (13.0-16.5); Lymphocyte # 0.94 X10^3/ul (0.83-4.51); Lymphocyte % 10.6 % (19-41); Mean Corp Hgb Conc 33.4 g/dL (32-36); Mean Corpuscular Hgb 30.6 pg (27.0-32.0); Mean Corpuscular Volume 91.4 fL (80-94); Mean Platelet Vol. 10.3 fl (6.2-12.0); Monocyte# 1.08 X10^3/uL; Monocyte% 12.2 % (0-10); NRBC Flagged by Analyzer 0 % (0-5); Neutrophil # 6.65 X10^3/uL (2.7-7.7); Neutrophil % 75.5 % (47-70); Platelet Count 213 K/mm3 (150-450); RBC Distribution Width CV 12.7 % (11.6-14.6); RBC Distribution Width SD 42.4 fl (35.1-43.9); Red Blood Count 3.24 M/mm3 (4.6-6.2); White Blood Count 8.8 K/mm3 (4.4-11.0)
[2021-02-01 06:00] LABS: Anion Gap 7 (5-15); BUN 22 mg/dL (7-18); BUN/Creat Ratio 22.9 RATIO (10-20); Calcium,Total 7.6 mg/dL (8.5-10.1); Chloride 106 mmol/L (98-107); Creatinine, Serum 0.96 mg/dL (0.70-1.30); EST Glomerular Filtration Rate 80 mL/min (>60); Est Glom Filt Rate - Afr Amer 97 mL/min (>60); Estimated Creatinine Clearance 53.39 ml/min; Glucose 103 mg/dL (74-106); Potassium 3.9 mmol/L (3.5-5.1); Sodium Level 137 mmol/L (136-145)
[2021-02-01] MEDS: Albuterol 2.5 MG/3 ML VIAL.NEB. INHALATION ×3 (07:04→18:47)
[2021-02-01] MEDS: Budesonide Respules 0.5 MG/2 ML AMPUL.NEB. INHALATION ×2 (07:04→18:47)
--- NOTE | 2021-02-01 07:30 | RAD_ITS ---
STUDY: X-RAY - PELVIS AND RIGHT HIP REASON FOR EXAM: Male, 80 years old. RIGHT GAMMA NAIL TECHNIQUE: 3 views of the pelvis and hip. COMPARISON: 01/31/2021 FINDINGS: Fluoroscopy the right hip was utilized and operating room during open reduction internal fixation and 5 images are limited for interpretation.. RAD/HIP, UNI W/ Pelvis 2-3 Views IMPRESSION: Fluoroscopy during open reduction internal fixation. Electronically Signed: Lowell Kenny MD at 8:48 EDT Tel , Service support ,
--- NOTE | 2021-02-01 07:32 | PCM.CONS.GEN ---
Assessment & Plan Assessment/Plan (1) Closed intertrochanteric fracture of right hip: PLAN: Right hip intertrochanteric displaced fracture with some comminution. Surgical and nonsurgical options discussed. He would like to proceed with open reduction internal fixation. Risk of surgery including but not limited to from operative or postoperative complications. Risk of anesthetic complications such as heart attacks, strokes, seizures, or . Risk of infections. Risk of damage to nerves arteries tendons. Risk of inadvertent fractures or dislocations. Risk of bone or wound healing complications. Possibility of nonunion malunion pain stiffness weakness. Possible need for further surgery such as hardware removal. Risk of DVT PE and other potential complications could lead to or disability explained. No guarantees were stated or implied. All of their questions were answered. Appropriate informed consent was obtained and signed for surgical intervention. Risk of COVID-19 had been explained. He will continue on the medical service. We will use aspirin for DVT prevention. Use Ancef for antibiotic prophylaxis. Medical management for asthma and COPD per hospitalist service HPI Consult Data Date of Consult: 02/01/21 HPI Narrative HPI Narrative: EV BROWN, is a 80 M who presents with a right hip intertrochanteric fracture. Patient fell yesterday January 31, 2021. He denies head injury or loss of consciousness. He denies significant pre-existing hip pain. He has had previous left knee replacement surgery. Patient was admitted to the medical service and orthopedics was appropriately consulted. REPLACED BY [facility] Medical History (Updated 01/31/21 @ 14:00 by Linda Mancera) Abnormal liver CT After cataract of both eyes not obscuring vision Anemia Anxiety Asthma Asthmatic bronchitis Back pain due to injury BiPAP (biphasic positive airway pressure) dependence BPH (benign prostatic hyperplasia) COPD (chronic obstructive pulmonary disease) Deafness in left ear Hearing loss, left Hearing loss, right HLD (hyperlipidemia) Hypertension Hyponatremia Insomnia Prostate cancer Sleep apnea Home Medications albuterol sulfate 2 puff INHALATION Q4H PRN PRN 03/11/18 [History Last Taken Unknown] albuterol sulfate 2.5 mg INHALATION Q4H PRN 03/31/18 [History Last Taken Unknown] ipratropium 0.5 mg-albuterol 3 mg (2.5 mg base)/3 mL nebulization soln 3 ml INHALATION Q8H PRN #180 ml 04/05/18 [Rx Last Taken Unknown] budesonide-formoterol HFA 160 mcg-4.5 mcg/actuation aerosol inhaler 2 puff INHALATION Q12H #10.2 g 07/25/18 [Rx Last Taken Unknown] Complex P 1 tablet PO.IVFORM TID 01/31/21 [History Last Taken Unknown] Exf 1 tab PO.IVFORM TID 01/31/21 [History Last Taken Unknown] Gastro-ulc 1 tablet PO.IVFORM DAILY 01/31/21 [History Last Taken Unknown] Nt Bacta 1 tab PO.IVFORM TID 01/31/21 [History Last Taken Unknown] Oxypower 2 tab PO.IVFORM TID 01/31/21 [History Last Taken Unknown] Para 2 1 tab PO.IVFORM TID 01/31/21 [History Last Taken Unknown] Para1 1 tab PO.IVFORM TID 01/31/21 [History Last Taken Unknown] Pel Immune 1 tab PO.IVFORM TID 01/31/21 [History Last Taken Unknown] Permilung 2 tab PO.IVFORM TID 01/31/21 [History Last Taken Unknown] Pro-Jackie 1 tab PO.IVFORM TID 01/31/21 [History Last Taken Unknown] Xpleen 1 tab PO.IVFORM TID 01/31/21 [History Last Taken Unknown] beclomethasone dipropionate 1 inh INHALATION BID 01/31/21 [History Last Taken Unknown] mometasone-formoterol [Dulera] 2 puff INHALATION DAILY 01/31/21 [History Last Taken Unknown] Allergy/AdvReac Type Severity Reaction Status Date / Time codeine Allergy Unknown Verified 01/31/21 11:26 levofloxacin [From Levaquin] Allergy Unknown Verified 01/31/21 11:26 morphine Allergy goes Verified 01/31/21 11:26 crazy Tetracyclines Allergy Unknown Verified 01/31/21 11:26 Family History (Updated 01/31/21 @ 13:56 by Linda Mancera) Other CVA (cerebral vascular accident) Surgical History (Updated 01/31/21 @ 13:59 by Linda Mancera) H/O colonoscopy History of appendectomy History of left knee replacement History of surgical removal of testicle Social History Smoking Status: Never smoker ROS ROS Narrative Patient is hard of hearing. He does wear hearing aids. He wears glasses. He denies any other problems with his eyes ears nose or throat heart or lungs bowel or bladder. Review of systems also reviewed from the medical provider Physical Exam Narrative Patient is laying in bed comfortably. Seen with his son and present. Patient has shortening and external rotation of the right hip. He has pain on palpation about the right hip. He has no calf pain or swelling bilaterally. Negative Homans' sign bilaterally. KITA hose and SCDs are on. He can gently plantarflex and dorsiflex toes and ankles. No pain at the left hip. X-rays reviewed showing an intertrochanteric fracture on the right hip. Chest x-ray reviewed Laboratory work and vital signs reviewed Case has been discussed with the ER physician, hospitalist, anesthesiologist Lab / Micro Data Result Diagrams: 02/01/21 05:34 02/01/21 05:34 Labs: Laboratory Results - last 24 hr 01/31/21 01/31/21 02/01/21 11:15 11:15 05:34 WBC 7.2 8.8 RBC 3.88 L 3.24 L Hgb 11.8 L 9.9 L Hct 36.1 L 29.6 L MCV 93.0 91.4 MCH 30.4 30.6 MCHC 32.7 33.4 RDW Std Deviation 43.9 42.4 RDW Coeff of Nasir 12.9 12.7 Plt Count 242 213 MPV 10.8 10.3 Immature Gran % (Auto) 0.700 0.300 Neut % (Auto) 90.4 H 75.5 H Lymph % (Auto) 6.5 L 10.6 L [place] % (Auto) 2.3 12.2 H Eos % (Auto) 0.0 1.1 Baso % (Auto) 0.1 0.3 Absolute Neuts (auto) 6.5 6.7 Absolute Lymphs (auto) 0.47 L 0.94 Nucleated RBC % 0 0 Differential Comment SCANNED Sodium 135 L Potassium 4.5 Chloride 103 Carbon Dioxide 25.0 Anion Gap 7 BUN 22 H Creatinine 0.96 Estim Creat Clear Calc 53.39 Est GFR (MDRD) Af Amer 97 Est GFR (MDRD) Non-Af 80 BUN/Creatinine Ratio 22.9 H Glucose 152 H Calcium 8.4 L Blood Type Antibody Screen 02/01/21 02/01/21 05:34 05:34 WBC RBC Hgb Hct MCV MCH MCHC RDW Std Deviation RDW Coeff of Nasir Plt Count MPV Immature Gran % (Auto) Neut % (Auto) Lymph % (Auto) [place] % (Auto) Eos % (Auto) Baso % (Auto) Absolute Neuts (auto) Absolute Lymphs (auto) Nucleated RBC % Differential Comment Sodium 137 Potassium 3.9 Chloride 106 Carbon Dioxide 24.0 Anion Gap 7 BUN 22 H Creatinine 0.96 Estim Creat Clear Calc 53.39 Est GFR (MDRD) Af Amer 97 Est GFR (MDRD) Non-Af 80 BUN/Creatinine Ratio 22.9 H Glucose 103 Calcium 7.6 L Blood Type O POSITIVE Antibody Screen NEGATIVE Micro: Microbiology 01/31/21 15:55 SARS-CoV-2 Antigen (Rapid) - Final Nasal Secretion Radiology Impression Chest X-Ray 01/31/21 11:30 IMPRESSION: Normal x-ray examination of the chest. Electronically Signed: Lowell Kenny MD at 12:09 EDT Tel , Service support , Hip/Pelvis X-Ray 01/31/21 11:30 IMPRESSION: Acute fracture of the intertrochanteric right femur with avulsion of the lesser trochanter per Electronically Signed: Lowell Kenny MD at 12:09 EDT Tel , Service support ,
[2021-02-01] MEDS: Cefazolin 2 GM in 0.9% Normal Saline 100 ML IV (07:39)
--- NOTE | 2021-02-01 08:42 | OP.PCM_ITS ---
Problems Associated Problem List Diagnoses (1) Closed intertrochanteric fracture of right hip: Operative Report Date of Procedure: 02/01/21 Preoperative diagnosis: Right hip displaced unstable intertrochanteric fracture Postoperative diagnosis: Same Title of operation: Right hip open reduction internal fixation, intramedullary nail fixation, locked Surgeon: Dr. Peter Diaz Thrill Performer: ELYSSA Anesthesia: General Medications: Ancef Anesthesiologist: Dr. Mccrary Complications: None EBL: 50 Indications for surgery: Patient is an 80-year-old male sustained a hip fracture yesterday. Patient and their family explained diagnosis and treatment options. Patient evaluated by the medical services. Patient did wish to have surgery. Appropriate informed consent obtained and signed. Findings: Patient had a displaced unstable intertrochanteric hip fracture. They underwent standard reduction, internal fixation using a [place] short gamma nail. X-rays taken throughout. assistant to the dean, ELYSSA, was utilized throughout the entire procedure. They were vital to the procedure from beginning to end. They help with patient transfer, patient padding and positioning, fracture reduction, maintenance of fracture reduction, internal fixation of implants, wound closure, bandage application, patient transfer. Without assistant professor surgical technology, surgical time would have been significantly increased and surgical outcome could have been less optimal. Procedure: Patient was taken to the operating room. Placed under a general anesthetic and transferred to the operating table with the help of the payroll human resources assistant. With the help of the payroll human resources assistant patient was prepped and padded for surgery. Operative side foot was well-padded and placed in the traction boot. Uninjured lower extremity was abducted and flexed out of harms way. KITA hose and SCDs utilized. Fluoroscopy was brought in. With the help of the payroll human resources assistant and manipulation of the limb, reduction was nicely obtained as verified under AP lateral and oblique fluoroscopic images. . Operative hip/thigh was prepped padded draped in usual orthopedic sterile fashion for the procedure. Longitudinal incision was made just proximal to the greater trochanter. Taken through skin and subcutaneous tissue. Sharp awl was placed on the tip of the greater trochanter. Position verified under AP and lateral fluoroscopic images. This was then taken down inside the bone. Slightly bent ball-tipped guide clint was then placed from the tip of the greater trochanter into the intra-medullary canal of the femur. Its position verified radiographically. Reamer was then done over the tip of this with the help of the payroll human resources assistant holding the soft tissue protector appropriately. Once reaming was done we placed the short 125? angle device over the guidepin. This was easily introduced. Guide clint removed. Outrigger device was utilized to position a guidepin from the lateral cortex of the femur across the fracture site and into the femoral head in a good position centrally, as noted on AP lateral and oblique fluoroscopic images. This was measured. Appropriate reaming done. Appreciate length lag screw was placed from the lateral cortex of the femur into the femoral head. A small amount of the screw was noted to be protruding laterally as planned. No cartilage penetration of the femoral head noted on any x-ray. Fracture was then compressed with the outrigger device. Proximal cap screw was placed by the mo morrisonstzuleyka seated down completely, confirmed, and then loosened one fourth turn. We then used the outrigger device to place distal cross locking screw under standard technique. This was confirmed to be of adequate length in good position on AP and lateral images. Outrigger device removed. Final set of AP and lateral proximal x-rays taken and saved. Incisions thoroughly irrigated. Closing by the payroll human resources assistant with deep 0 Vicryl, mid layer 0 Vicryl, inverted 2-0 Vicryl, skin johnnie. Puncture wounds closed with inverted 2-0 Vicryl and johnnie. Xeroform 4 x 4's ABD tape applied. Patient was awoken from their anesthetic, transferred back to their own bed with the help of the payroll human resources assistant and into recovery room in satisfactory condition. Patient will continue to be admitted to the hospital under the hospitalist service. Ancef 2 g IV was given for preoperative antibiotic. KITA fernández and SCDs utilized throughout. Patient will be started on Lovenox 40 mg subcu daily for DVT prevention This note was generated with [employer] dictation software. It may contain incorrect words, spelling, and punctuation that were not noted in checking the note before signing.
[2021-02-01] MEDS: Losartan Potassium 50 MG Tablet PO (10:27)
[2021-02-01] MEDS: Enoxaparin 40 MG/0.4 ML Syringe SC (10:28)
--- NOTE | 2021-02-01 11:59 | PN.HOSP_ITS ---
Subjective Subjective Patient seen and examined. She had surgery today for right hip fracture. Pain is well controlled. No new complaints. Review of systems otherwise negative. He has remained hemodynamically stable. Objective Data Objective Data Vital Signs: Vital Signs Temp Pulse Resp BP Pulse Ox 97.8 F 66 16 121/51 H 98 02/01/21 10:10 02/01/21 10:19 02/01/21 10:10 02/01/21 10:10 02/01/21 10:10 Oxygen Flow Rate (L/min) 2 Oxygen Delivery Method Nasal Cannula Weight: 139 lb Body Mass Index (BMI) 23.1 Intake & Output: Intake and Output for Last 24 Hours 01/30/21 01/31/21 02/01/21 23:59 23:59 23:59 Intake Total 750 / 750 3833.34 / 3833.34 Output Total 550 / 550 350 / 350 Balance 200 / 200 3483.34 / 3483.34 Lab / Micro Data Result Diagrams: 02/01/21 05:34 02/01/21 05:34 Labs: Laboratory Results - last 24 hr 01/31/21 02/01/21 02/01/21 11:15 05:34 05:34 WBC 8.8 RBC 3.24 L Hgb 9.9 L Hct 29.6 L MCV 91.4 MCH 30.6 MCHC 33.4 RDW Std Deviation 42.4 RDW Coeff of Nasir 12.7 Plt Count 213 MPV 10.3 Immature Gran % (Auto) 0.300 Neut % (Auto) 75.5 H Lymph % (Auto) 10.[address] [facility] [facility] % (Auto) 12.2 H Eos % (Auto) 1.1 Baso % (Auto) 0.3 Absolute Neuts (auto) 6.7 Absolute Lymphs (auto) 0.94 Nucleated RBC % 0 Differential Comment SCANNED Sodium 137 Potassium 3.9 Chloride 106 Carbon Dioxide 24.0 Anion Gap 7 BUN 22 H Creatinine 0.96 Estim Creat Clear Calc 53.39 Est GFR (MDRD) Af Amer 97 Est GFR (MDRD) Non-Af 80 BUN/Creatinine Ratio 22.9 H Glucose 103 Calcium 7.6 L Blood Type Antibody Screen 02/01/21 05:34 WBC RBC Hgb Hct MCV MCH MCHC RDW Std Deviation RDW Coeff of Nasir Plt Count MPV Immature Gran % (Auto) Neut % (Auto) Lymph % (Auto) [facility] % (Auto) Eos % (Auto) Baso % (Auto) Absolute Neuts (auto) Absolute Lymphs (auto) Nucleated RBC % Differential Comment Sodium Potassium Chloride Carbon Dioxide Anion Gap BUN Creatinine Estim Creat Clear Calc Est GFR (MDRD) Af Amer Est GFR (MDRD) Non-Af BUN/Creatinine Ratio Glucose Calcium Blood Type O POSITIVE Antibody Screen NEGATIVE Micro: Microbiology 01/31/21 15:55 Nasal Secretion SARS-CoV-2 Antigen (Rapid) - Final Radiography Diagnostic Testing: Radiology Impression Chest X-Ray 01/31/21 11:30 IMPRESSION: Normal x-ray examination of the chest. Electronically Signed: Lowell Kenny MD at 12:09 EDT Tel , Service support , Hip/Pelvis X-Ray 01/31/21 11:30 IMPRESSION: Acute fracture of the intertrochanteric right femur with avulsion of the lesser trochanter per Electronically Signed: Lowell Kenny MD at 12:09 EDT Tel , Service support , Hip/Pelvis X-Ray 02/01/21 07:30 IMPRESSION: Fluoroscopy during open reduction internal fixation. Electronically Signed: Lowell Kenny MD at 8:48 EDT Tel , Service support , Physical Exam Const alert, oriented x3 and no apparent distress General Appearance: cooperative Exam Limitations: no limitations HEENT normocephalic, head/scalp atraumatic, hearing grossly normal bilaterally and moist oral mucous membranes Head and Scalp: normocephalic Eyes PERRL, EOMs intact bilaterally and conjunctivae normal Neck no lymphadenopathy, supple and no JVD Resp normal respiratory effort, no retractions, no use of accessory muscles and clear to auscultation bilaterally Cardio regular rate, regular rhythm, S1 normal heart sound, S2 normal heart sound and no murmurs GI normal to inspection, nondistended, normoactive bowel sounds, soft to palpation, non-tender and non-distended Extremity Extremity Narrative: Intact dressing over surgical site on right hip. Skin no rashes or lesions noted Neuro oriented x3 Sensorium / Orientation: awake and alert Psych affect normal Assessment & Plan Assessment/Plan (1) Closed intertrochanteric fracture of right hip: (2) Asthma: QUALIFIERS: Asthma severity: moderate Asthma persistence: persistent Asthma complication type: uncomplicated Qualified Code(s): J45.40 - Moderate persistent asthma, uncomplicated (3) Hypertension: QUALIFIERS: Hypertension type: essential hypertension Qualified Code(s): I10 - Essential (primary) hypertension PLAN: #Right intertrochanteric hip fracture due to mechanical fall * s/p right hip hemiarthroplasty. TOday is POD 0 * pain is well controlled * On Tylenol, IV fentanyl for pain. * PT OT on board. Fall precautions. * Incentive spirometry. * #History of asthma * On breathing treatments with bronchodilators. Give oxygen as needed for shortness of breath. * #Hypertension: on losartan and HCTZ #BPH: on flomax and finasteride DVT prophylaxis: lovenox Code status: full code * Visit Charges Inpatient E&M: 31935 Subs Hosp L2
[2021-02-01] MEDS: Acetaminophen 325 MG Tablet 650 MG PO (12:11)
[2021-02-01] MEDS: Cefazolin 1 GM/50 ML BAG IV ×2 (13:52→21:32)
[2021-02-01] MEDS: 0.9% Saline Lock 10 ML Syringe IV (22:19)
[2021-02-02] VITALS (15 sets, daily range): BP systolic 100–125; BP diastolic 37–66; PULSE 62–81; RESP 18; TEMP 36.6–37.2; O2SAT 84–97
[2021-02-02] MEDS: Ipratropium/Albuterol Sulfate 3 ML AMPUL.NEB INHALATION (03:35)
[2021-02-02] MEDS: Ketorolac 30 MG/ML Syringe IM (05:29)
[2021-02-02] MEDS: 0.9% Saline Lock 10 ML Syringe IV (05:29)
[2021-02-02 06:23] LABS: Absolute Lymphocyte Count 0.89 X10^3/uL (0.83-4.51); Absolute Neutrophil Count 6.6 X10^3/uL (2.0-7.7); Basophil# 0.03 X10^3/uL; Basophil% 0.3 % (0-1); Eosinophils% 2.3 % (0-5); Hematocrit 25.9 % (40-54); Hemoglobin 8.6 g/dL (13.0-16.5); Lymphocyte # 0.89 X10^3/ul (0.83-4.51); Lymphocyte % 10.3 % (19-41); Mean Corp Hgb Conc 33.2 g/dL (32-36); Mean Corpuscular Hgb 30.9 pg (27.0-32.0); Mean Corpuscular Volume 93.2 fL (80-94); Mean Platelet Vol. 10.9 fl (6.2-12.0); Monocyte# 0.92 X10^3/uL; Monocyte% 10.7 % (0-10); NRBC Flagged by Analyzer 0 % (0-5); Neutrophil # 6.56 X10^3/uL (2.7-7.7); Neutrophil % 76.1 % (47-70); Platelet Count 172 K/mm3 (150-450); RBC Distribution Width CV 12.8 % (11.6-14.6); Red Blood Count 2.78 M/mm3 (4.6-6.2); White Blood Count 8.6 K/mm3 (4.4-11.0)
[2021-02-02 06:48] LABS: Anion Gap 6 (5-15); BUN 21 mg/dL (7-18); BUN/Creat Ratio 23.9 RATIO (10-20); Calcium,Total 7.7 mg/dL (8.5-10.1); Chloride 105 mmol/L (98-107); Creatinine, Serum 0.88 mg/dL (0.70-1.30); EST Glomerular Filtration Rate 89 mL/min (>60); Est Glom Filt Rate - Afr Amer 107 mL/min (>60); Estimated Creatinine Clearance 58.24 ml/min; Glucose 109 mg/dL (74-106); Potassium 4.1 mmol/L (3.5-5.1); Sodium Level 133 mmol/L (136-145)
[2021-02-02] MEDS: Budesonide Respules 0.5 MG/2 ML AMPUL.NEB. INHALATION ×2 (07:02→17:41)
[2021-02-02] MEDS: Albuterol 2.5 MG/3 ML VIAL.NEB. INHALATION ×3 (07:02→17:41)
[2021-02-02] MEDS: Acetaminophen 325 MG Tablet 650 MG PO (10:04)
[2021-02-02] MEDS: Enoxaparin 40 MG/0.4 ML Syringe SC (10:05)
--- NOTE | 2021-02-02 12:24 | PN.HOSP_ITS ---
Subjective Subjective Patient seen and examined. He has no complaints and feels well. Review of symptoms otherwise negative. Patient sees work with therapy and did well but he does not think his daughter will be able to manage him at home so he wants go to rehab unit for a bit before he goes home. He has remained hemodynamically sta ble. Objective Data Objective Data Vital Signs: Vital Signs Temp Pulse Resp BP Pulse Ox 98.3 F 78 18 108/48 L 94 02/02/21 08:24 02/02/21 10:00 02/02/21 08:24 02/02/21 08:24 02/02/21 08:24 Oxygen Flow Rate (L/min) 2 Oxygen Delivery Method Room Air Weight: 139 lb Body Mass Index (BMI) 23.1 Intake & Output: Intake and Output for Last 24 Hours 01/31/21 02/01/21 02/02/21 23:59 23:59 23:59 Intake Total 750 / 750 5944.34 / 5944.34 1100 / 1100 Output Total 550 / 550 850 / 850 600 / 600 Balance 200 / 200 5094.34 / 5094.34 500 / 500 Lab / Micro Data Result Diagrams: 02/02/21 05:59 02/02/21 05:59 Labs: Laboratory Results - last 24 hr 02/02/21 02/02/21 05:59 05:59 WBC 8.6 RBC 2.78 L Hgb 8.6 L Hct 25.9 L MCV 93.2 MCH 30.9 MCHC 33.2 RDW Std Deviation 44.0 H RDW Coeff of Nasir 12.8 Plt Count 172 MPV 10.9 Immature Gran % (Auto) 0.300 Neut % (Auto) 76.1 H Lymph % (Auto) 10.3 L [place] % (Auto) 10.7 H Eos % (Auto) 2.3 Baso % (Auto) 0.3 Absolute Neuts (auto) 6.6 Absolute Lymphs (auto) 0.89 Nucleated RBC % 0 Sodium 133 L Potassium 4.1 Chloride 105 Carbon Dioxide 22.0 Anion Gap 6 BUN 21 H Creatinine 0.88 Estim Creat Clear Calc 58.24 Est GFR (MDRD) Af Amer 107 Est GFR (MDRD) Non-Af 89 BUN/Creatinine Ratio 23.9 H Glucose 109 H Calcium 7.7 L Micro: Microbiology 01/31/21 15:55 Nasal Secretion SARS-CoV-2 Antigen (Rapid) - Final Physical Exam Const alert, oriented x3 and no apparent distress General Appearance: cooperative Exam Limitations: no limitations HEENT normocephalic, head/scalp atraumatic, hearing grossly normal bilaterally and mo ist oral mucous membranes Eyes PERRL, EOMs intact bilaterally and conjunctivae normal Neck no lymphadenopathy, supple and no JVD Resp normal respiratory effort, no retractions, no use of accessory muscles and clear to auscultation bilaterally Cardio regular rate, regular rhythm, S1 normal heart sound, S2 normal heart sound and no murmurs GI normal to inspection, nondistended, normoactive bowel sounds, soft to palpation, non-tender and non-distended Extremity Extremity Narrative: Intact dressing over surgical site on right hip. Skin no rashes or lesions noted Neuro oriented x3 Sensorium / Orientation: awake and alert Psych affect normal Assessment & Plan Assessment/Plan (1) Closed intertrochanteric fracture of right hip: (2) Asthma: QUALIFIERS: Asthma severity: moderate Asthma persistence: persistent Asthma complication type: uncomplicated Qualified Code(s): J45.40 - Moderate persistent asthma, uncomplicated (3) Hypertension: QUALIFIERS: Hypertension type: essential hypertension Qualified Code(s): I10 - Essential (primary) hypertension PLAN: #Right intertrochanteric hip fracture due to mechanical fall * s/p right hip hemiarthroplasty. TOday is POD 1 * pain is well controlled * On Tylenol, IV fentanyl for pain. * PT OT on board. Fall precautions. * Incentive spirometry. * #History of asthma * On breathing treatments with bronchodilators. Give oxygen as needed for shortness of breath. * #Hypertension: on losartan and HCTZ #BPH: on flomax and finasteride DVT prophylaxis: lovenox Code status: full code * Disposition: patient wants to go to Inpatient Rehab Unit. Case management on board. Visit Charges Inpatient E&M: 45770 Subs Hosp L2
[2021-02-02] MEDS: Aspirin 81 MG TAB.CHEW PO ×2 (15:28→16:35)
--- NOTE | 2021-02-02 19:35 | PN.ORTHO_ITS ---
Subjective Subjective Patient is postoperative day #1 from right hip intramedullary nailing for intertrochanteric fracture. He denies any rest pain. Some pain with moving the hip. Some pain with walking. He and the family have decided to proceed with a discharge to rehab unit. He denies chest pain or shortness of breath. Denies productive cough. Objective Data Objective Data Vital Signs: Vital Signs Temp Pulse Resp BP Pulse Ox 98.6 F 81 18 106/37 L 95 02/02/21 15:29 02/02/21 19:02 02/02/21 17:42 02/02/21 15:29 02/02/21 15:29 Oxygen Flow Rate (L/min) 2 Oxygen Delivery Method Room Air Weight: 63.049 kg Body Mass Index (BMI) 23.1 Intake & Output: Intake and Output for Last 24 Hours 01/31/21 02/01/21 02/02/21 23:59 23:59 23:59 Intake Total 750 / 750 5944.34 / 5944.34 2100 / 2100 Output Total 550 / 550 850 / 850 1250 / 1250 Balance 200 / 200 5094.34 / 5094.34 850 / 850 Lab / Micro Data Result Diagrams: 02/02/21 05:59 02/02/21 05:59 Labs: Laboratory Results - last 24 hr 02/02/21 02/02/21 05:59 05:59 WBC 8.6 RBC 2.78 L Hgb 8.6 L Hct 25.9 L MCV 93.2 MCH 30.9 MCHC 33.2 RDW Std Deviation 44.0 H RDW Coeff of Nasir 12.8 Plt Count 172 MPV 10.9 Immature Gran % (Auto) 0.300 Neut % (Auto) 76.1 H Lymph % (Auto) 10.3 L [place] % (Auto) 10.7 H Eos % (Auto) 2.3 Baso % (Auto) 0.3 Absolute Neuts (auto) 6.6 Absolute Lymphs (auto) 0.89 Nucleated RBC % 0 Sodium 133 L Potassium 4.1 Chloride 105 Carbon Dioxide 22.0 Anion Gap 6 BUN 21 H Creatinine 0.88 Estim Creat Clear Calc 58.24 Est GFR (MDRD) Af Amer 107 Est GFR (MDRD) Non-Af 89 BUN/Creatinine Ratio 23.9 H Glucose 109 H Calcium 7.7 L Micro: Microbiology 01/31/21 15:55 Nasal Secretion SARS-CoV-2 Antigen (Rapid) - Final Physical Exam Narrative Right hip bandages on clean and dry. There is a small dime sized area of dried blood at the proximal Mepilex dressing. It does not touch the borders. He has good equal leg lengths. No obvious malrotation. No calf pain or swelling caleb aterally. Negative Homans' sign bilaterally. Grade 5 strength of the toes and ankles. Mild hip pain with good flexion. Mild hip pain with good rotation. Laboratory work and vital signs reviewed Note from hospitalist reviewed Assessment & Plan Assessment/Plan (1) Closed intertrochanteric fracture of right hip: PLAN: His diagnosis and treatment options regarding his right hip intertrochanteric fracture discussed with him at length. He understands he can be weightbearing as tolerated. He can do full range of motion of the right hip as pain allows. Ice if needed. Pain medication if needed. Continue Lovenox for DVT prevention. Patient does have blood loss anemia consistent with his diagnosis and treatment for his hip fracture. Continue to follow/ manage medically Okay from orthopedic standpoint for discharge. Would maintain Mepilex dressing for 7 days. Would maintain johnnie for 14 days. I would like to see him in the office in 2 weeks for wound check, staple removal, x-rays. Can be notified sooner if needed.
[2021-02-03] VITALS (10 sets, daily range): BP systolic 104–147; BP diastolic 47–67; PULSE 65–79; RESP 16–20; TEMP 36.7–36.8; O2SAT 93–98
[2021-02-03] MEDS: Albuterol 2.5 MG/3 ML VIAL.NEB. INHALATION ×3 (04:43→13:16)
[2021-02-03] MEDS: Budesonide Respules 0.5 MG/2 ML AMPUL.NEB. INHALATION (07:09)
[2021-02-03] MEDS: Acetaminophen 325 MG Tablet 650 MG PO ×2 (07:59→13:03)
[2021-02-03] MEDS: Aspirin 81 MG TAB.CHEW PO (08:00)
[2021-02-03 09:18] LABS: Anion Gap 7 (5-15); BUN 18 mg/dL (7-18); Calcium,Total 8.1 mg/dL (8.5-10.1); Chloride 104 mmol/L (98-107); Creatinine, Serum 0.86 mg/dL (0.70-1.30); EST Glomerular Filtration Rate 91 mL/min (>60); Est Glom Filt Rate - Afr Amer 110 mL/min (>60); Estimated Creatinine Clearance 59.59 ml/min; Glucose 138 mg/dL (74-106); Potassium 3.9 mmol/L (3.5-5.1); Sodium Level 135 mmol/L (136-145)
[2021-02-03] MEDS: Losartan Potassium 50 MG Tablet PO (09:51)
--- NOTE | 2021-02-03 10:00 | CASEMGMT ---
Palliative screening tool completed at this time for Lace/Strata 3. Patient does not meet criteria at this time.
--- NOTE | 2021-02-03 12:15 | CASEMGMT ---
OSIEL ANTHONY Face to Face with patient for initial transition planning/care coordination assessment. OSIEL ANTHONY introduced self and role at [facility]. Patient sitting in chair, alert and oriented. Patient willing to participate in assessment and is able to answer all questions appropriately. Care providers, pharmacy, and demographics verified. Patient wishes to discharge to rehab unit for additional therapy. Patient states he has no further needs or concerns at this time. OSIEL ANTHONY updated MOLLY Paige regarding request for rehab unit. CM to follow for discharge planning needs that may arise. PCP: Shantanu Specialists: none Preferred Pharmacy: [facility] Insurance: [facility] [place] Pres[place] Benefit: none Living Will/HPOA: none LNOK: daughter Living Arrangements: Patient lives with daughter in a 2 story home with bed and bath with 6 steps and railing to enter the home. 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 Patient would like to go to rehab unit Disposition Plan: Sara HARVEY, RN, CM
--- NOTE | 2021-02-03 12:47 | PCM.DC.SUM ---
Providers Date of Admission: 01/31/21 Primary Care Physician: Dr. Bala Fournier MD Consultations 01/31/21 13:35 Consult: Orthopedics Routine Consulting Provider: Peter Brown Reason for Consult: right hip fracture due to mechanical fall EMERGENT Consult: No MD Notified: Yes Date Notified:: 01/31/21 Time Notified: 12:33 Method of Notification: Verbal Reason For Visit: RIGHT HIP FRACTURE, MECHANICAL FALL Diagnosis Discharge Diagnosis (1) Closed intertrochanteric fracture of right hip: Status: Acute Code(s): S72.141A - Displaced intertrochanteric fracture of right femur, initial encounter for closed fracture Medications at Discharge Home Medications albuterol sulfate 2 puff INHALATION Q4H PRN PRN 03/11/18 albuterol sulfate 2.5 mg INHALATION Q4H PRN 03/31/18 ipratropium 0.5 mg-albuterol 3 mg (2.5 mg base)/3 mL nebulization soln 3 ml INHALATION Q8H PRN #180 ml 04/05/18 budesonide-formoterol HFA 160 mcg-4.5 mcg/actuation aerosol inhaler 2 puff INHALATION Q12H #10.2 g 07/25/18 Complex P 1 tablet PO.IVFORM TID 01/31/21 Dulera 2 puff INHALATION DAILY 01/31/21 Exf 1 tab PO.IVFORM TID 01/31/21 Gastro-ulc 1 tablet PO.IVFORM DAILY 01/31/21 Nt Bacta 1 tab PO.IVFORM TID 01/31/21 Oxypower 2 tab PO.IVFORM TID 01/31/21 Para 2 1 tab PO.IVFORM TID 01/31/21 Para1 1 tab PO.IVFORM TID 01/31/21 Pel Immune 1 tab PO.IVFORM TID 01/31/21 Permilung 2 tab PO.IVFORM TID 01/31/21 Pro-Jackie 1 tab PO.IVFORM TID 01/31/21 Xpleen 1 tab PO.IVFORM TID 01/31/21 beclomethasone dipropionate 1 inh INHALATION BID 01/31/21 acetaminophen [Tylenol] 650 mg PO Q6H PRN PRN #30 tab 02/03/21 aspirin 81 mg PO BIDCM #42 tab 06/01/21 losartan 25 mg PO DAILY #30 tab 06/01/21 Hospital Course Operations - (right hip intramedullary nailing) Procedures None Summary of Care Provided Minutes Spent on Discharge: 40 Hospital Course: EV BROWN, is a 80 M with a PMH as outlined who presents with a complaint of mechanical fall. He was using his handcart to move things around, and lost his footing, resulting in a mechanical fall. He landed on his right hip. He was unable to weight bear, and pain was severe, so he came in to the ED. He has a history of asthma and COPD for which he uses his inhalers. He says his PCP told him to take oral prednisone when he got short of breath. He last took prednisone this morning after not taking any for the last couple of weeks. In the ED, vitals were essentially stable. WBC was 7.2 with hemoglobin of 11.8 and platelets of 242. Chemistry was remarkable for sodium of 135 which is chronic. X-ray of the right hip showed acute fracture of the intertrochanteric right femur with avulsion of the lesser trochanter. He was admitted to be managed for acute right hip fracture due to mechanical fall. He was hydrated with fluids and put on IV fentanyl and p.o. Tylenol for pain. Orthopedic surgery was consulted and patient had a right hip intramedullary nailing for intertrochanteric fracture. Postop course was stable and pain was well controlled. Patient will post physical therapy. He elected to be discharged to inpatient rehab unit follow-up physical therapy. Patient remained stable and was discharged to the inpatient rehab unit on 02/03/2021. He is to follow-up with his primary care doctor and follow-up with orthopedic surgery and was discharged on p.o. aspirin 81 mg twice daily for 4 weeks for DVT prophylaxis. Patient was seen and examined prior to discharge and had no complaints. Pain was well controlled. Review of symptoms otherwise negative. Labs and vitals reviewed. Medication reviewed and reconciled. Physical Exam Const alert, oriented x3 and no apparent distress General Appearance: cooperative Exam Limitations: no limitations HEENT normocephalic, head/scalp atraumatic, hearing grossly normal bilaterally and moist oral mucous membranes Eyes PERRL, EOMs intact bilaterally and conjunctivae normal Neck no lymphadenopathy, supple and no JVD Resp normal respiratory effort, no retractions, no use of accessory muscles and clear to auscultation bilaterally Cardio regular rate, regular rhythm, S1 normal heart sound, S2 normal heart sound and no murmurs GI normal to inspection, nondistended, normoactive bowel sounds, soft to palpation, non-tender and non-distended Skin no rashes or lesions noted Neuro oriented x3 Sensorium / Orientation: awake and alert Psych affect normal ABG / Lab / Microbiology Data Result Diagrams: 02/02/21 05:59 02/03/21 08:20 Laboratory: Laboratory Results - last 24 hr 02/03/21 08:20 Sodium 135 L Potassium 3.9 Chloride 104 Carbon Dioxide 24.0 Anion Gap 7 BUN 18 Creatinine 0.86 Estim Creat Clear Calc 59.59 Est GFR (MDRD) Af Amer 110 Est GFR (MDRD) Non-Af 91 BUN/Creatinine Ratio 21.0 H Glucose 138 H Calcium 8.1 L Microbiology: Microbiology 01/31/21 15:55 Nasal Secretion SARS-CoV-2 Antigen (Rapid) - Final D/C Instructions Discharge Diet: 2000 mg Sodium Diet Discharge Activity: Return to Normal Activity Weight Bearing Status: Weight bearing as tolerated Call your doctor if you observe: Shortness of breath, Dizziness, Swelling in the ankles, Chest pain, Increased palpitations (irregular heartbeat) and Uncontrolled pain Meaningful Use Info Meaningful Use Diagnoses (Choose all that apply): None applicable Discharge Plan Admission Admit Date/Time: 01/31/21 12:35 Primary Reason for Your Visit: mechanical fall, right femoral fracture Attending Provider: Grace Concepcion Primary Care Provider: Bala Fournier Consulting Providers: Peter Brown Instructions Patient Instructions: ED Fracture, Lower Extremity Discharge Orders/Prescriptions Prescriptions: New acetaminophen [Tylenol] 325 mg Tablet 650 mg PO Q6H PRN PRN (Reason: Pain Score 1-10/Temp > 100.7 F) Qty: 30 RF: 0 aspirin 81 mg Tablet,Chewable 81 mg PO BIDCM Qty: 42 RF: 0 losartan 25 mg tablet 25 mg PO DAILY Qty: 30 RF: 1 Continued albuterol sulfate 2.5 mg /3 mL (0.083 %) solution for nebulization 2.5 mg INHALATION Q4H PRN (Reason: sob) RF: 0 ipratropium-albuterol 0.5 mg-3 mg(2.5 mg base)/3 mL solution for nebulization 3 ml INHALATION Q8H PRN (Reason: shortness of breath) Qty: 180 RF: 3 Symbicort 160-4.5 mcg/actuation HFA aerosol inhaler 2 puff INHALATION Q12H Qty: 10.2 RF: 11 albuterol sulfate 1 PUFF inhaler 2 puff INHALATION Q4H PRN PRN (Reason: short of breath) RF: 0 Dulera 200-5 mcg/actuation HFA aerosol inhaler 2 puff INHALATION DAILY RF: 0 beclomethasone dipropionate 80 mcg/actuation Hfa Aerosol Breath Activated 1 inh INHALATION BID RF: 0 Para 2 1 tab PO.IVFORM TID RF: 0 Complex P 1 tablet PO.IVFORM TID RF: 0 Exf 1 tab PO.IVFORM TID RF: 0 Gastro-ulc 1 tablet PO.IVFORM DAILY RF: 0 Nt Bacta 1 tab PO.IVFORM TID RF: 0 Oxypower 2 tab PO.IVFORM TID RF: 0 Para1 1 tab PO.IVFORM TID RF: 0 Pel Immune 1 tab PO.IVFORM TID RF: 0 Permilung 2 tab PO.IVFORM TID RF: 0 Pro-Jackie 1 tab PO.IVFORM TID RF: 0 Xpleen 1 tab PO.IVFORM TID RF: 0 Referrals / Follow Up: Peter Brown MD [STAFF PHYSICIAN] - Within 2 Weeks Bala Fournier MD [Primary Care Provider] - Within 2 Weeks Disposition Disposition (needs filled in before D/C Order can be placed): Inpatient rehab unit/facility
--- NOTE | 2021-02-03 14:32 | CHAPLAIN ---
Type of Pastoral Visit _x__ Initial Visit ___ Follow-up Visit ___ On-call Visit ___ General Patient Visit ___ Spiritual Assessment ___ Family Conference ___ Bereavement ___ Rapid Response ___ Code Blue ___ Other (describe below) Pastoral Care Referral From _x__ Patient ___ Family ___ Nurse ___ Physician ___ Community Health Program Representative ___ Supervisor [employer] _x__ Other (describe below) Sacrament/Intervention _x__ Active listening ___ Anointing ___ Restorationism ___ Bereavement ___ Communion ___ Eboni exploration ___ _x__ Life review _x__ Prayer ___ Reconciliation ___ Sacrament of Sick _x__ Supportive presence ___ Wedding ___ Other (describe below) Pastoral Comments patient had a sister yesterday; patient has been twice and has had to stop working so grief is familiar and present; listening and prayer along with presence given
--- NOTE | 2021-02-03 15:11 | CASEMGMT ---
Social Work Note MOLLY updated that pt is agreeable to [facility]. MOLLY placed a call to Mikala with [facility]. does offer an Taoist Package plan. Donna the Taoist Liaison to meet with pt today. MOLLY received call from Mikala with and [facility] is able to accept pt today. MOLLY updated physician. Pt is able to discharge to today. SW in to speak with pt. SW introduced self and role at [facility]. Patient was provided a list of IRF providers including quality and resource use data and consistent with the patient?s preferred geographic region, medical needs, and insurance network. Pt preferred provider is [facility]. Pt states he will be calling his daughter to update her. 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
== END 2021-02-03 15:35 | disposition skilled nursing facility (03) | DRG 482 ==
LOC: ED 12:11 → MS3 12:37
PROVIDERS: Orthopaedic Surgery; Admitting Provider Student in an Organized Health Care Education/Training Program; Emergency Provider Emergency Medicine; PCP Family Medicine; Visit Provider Student in an Organized Health Care Education/Training Program
PROC: 0QS806Z Reposition Right Femoral Shaft with Intramedullary Internal Fixation Device, Open Approach (ICD-10-PCS; CPT 27245; principal; 2021-02-01 07:30)
DX: S72.141A Displaced intertrochanteric fracture of right femur, initial encounter for closed fracture (principal); W01.0XXA Fall on same level from slipping, tripping and stumbling without subsequent striking against object, initial encounter; Y93.89 Activity, other specified; Y92.9 Unspecified place or not applicable; Y99.9 Unspecified external cause status; I10 Essential (primary) hypertension; J44.9 Chronic obstructive pulmonary disease, unspecified; J45.40 Moderate persistent asthma, uncomplicated; E78.5 Hyperlipidemia, unspecified; N40.0 Benign prostatic hyperplasia without lower urinary tract symptoms; H91.93 Unspecified hearing loss, bilateral; Z79.899 Other long term (current) drug therapy
CPT/HCPCS: 36415; 71045; 73502; 76000; 80048; 85025; 86850; 86900; 86901; 87426; 93005; 94640; 94762; 97110; 97163; 97166; 97530; 97535; 99285; C1713; J7030; A4216; J2405

== ENCOUNTER 2021-02-03 16:16 | Inpatient (IN) | payer SELFPAY, OTHER ==
[2021-02-01 05:18] VITALS: BMI 23.1
[2021-02-03 16:26] VITALS: BP 110/46; PULSE 72; RESP 16; TEMP 36.6; O2SAT 97
[2021-02-03 16:42] VITALS: BMI 23.8
--- NOTE | 2021-02-03 16:48 | PCM.HP.STD ---
[facility] - General General Date of Admission: 02/03/21 Date of Service: 02/03/21 Chief Complaint: Debility secondary to recent right hip fracture. HPI Narrative EV BROWN, is a 80 [place] M who presented to the emergency department at [facility] on 01/31/2021 complaining of right hip pain following a mechanical fall. His past medical history is significant for asthma, hypertension, hyperlipidemia, history of prostate cancer, sleep apnea treated with BiPAP, anxiety and chronic anemia ( no cause given). XRAY in the ED showed a R hip fracture. He was seen by Dr. Peter Brown and taken to surgery on 02/01/21 for ORIF and placement of an intrameduallary clint. He was transferred to the inpt acute rehab floor at [facility] on 02/03/21 for > 3 hours of therapy to restore function at or near his level prior to the fall/hip fracture. The EMR from his visits to [facility] was reviewed: EKG was unremarkable with the exception of premature beats. He has never had a ECHO or a stress at [facility]. He last saw Dr. Barboza in 2018 and at that visit he was changed from QVAR to Symbicort. He has a N/N anemia dating back to March of 2018. Na is chronically mildly decreased. Glucose has been elevated in the past but, he has not had a HGBA1C checked. Calcium is low but, no albumin on the chart so can not correct for possible hypoalbuminemia. The med list at [facility] was reviewed and there are several inhalers listed ......many that have similar ingredients. He was placed on 1 baby aspirin twice daily for the next 4 weeks by orthopedics for DVT prophylaxis. The prostate CA was diagnosed in 2016 and he had 45 external beam radiation tx's. He also had a BL orchiectomy. [facility] Medical History (Updated 02/03/21 @ 18:[address] Pauline Ramesh, ) Abnormal liver CT Anxiety Asthma Back pain due to injury Bilateral carotid bruits BiPAP (biphasic positive airway pressure) dependence BPH (benign prostatic hyperplasia) COPD (chronic obstructive pulmonary disease) Gynecomastia, male HLD (hyperlipidemia) Hyperglycemia Hypertension Hyponatremia Insomnia Normochromic normocytic anemia Presbycusis, bilateral Prostate cancer Sleep apnea Home Medications albuterol sulfate 2 puff INHALATION Q4H PRN PRN 03/11/18 [History Last Taken Unknown] albuterol sulfate 2.5 mg INHALATION Q4H PRN 03/31/18 [History Last Taken Unknown] ipratropium 0.5 mg-albuterol 3 mg (2.5 mg base)/3 mL nebulization soln 3 ml INHALATION Q8H PRN #180 ml 04/05/18 [Rx Last Taken Unknown] budesonide-formoterol HFA 160 mcg-4.5 mcg/actuation aerosol inhaler 2 puff INHALATION Q12H #10.2 g 07/25/18 [Rx Last Taken Unknown] Complex P 1 tablet PO.IVFORM TID 01/31/21 [History Last Taken Unknown] Dulera 2 puff INHALATION DAILY 01/31/21 [History Last Taken Unknown] Exf 1 tab PO.IVFORM TID 01/31/21 [History Last Taken Unknown] Gastro-ulc 1 tablet PO.IVFORM DAILY 01/31/21 [History Last Taken Unknown] Nt Bacta 1 tab PO.IVFORM TID 01/31/21 [History Last Taken Unknown] Oxypower 2 tab PO.IVFORM TID 01/31/21 [History Last Taken Unknown] Para 2 1 tab PO.IVFORM TID 01/31/21 [History Last Taken Unknown] Para1 1 tab PO.IVFORM TID 01/31/21 [History Last Taken Unknown] Pel Immune 1 tab PO.IVFORM TID 01/31/21 [History Last Taken Unknown] Permilung 2 tab PO.IVFORM TID 01/31/21 [History Last Taken Unknown] Pro-Jackie 1 tab PO.IVFORM TID 01/31/21 [History Last Taken Unknown] Xpleen 1 tab PO.IVFORM TID 01/31/21 [History Last Taken Unknown] beclomethasone dipropionate 1 inh INHALATION BID 01/31/21 [History Last Taken Unknown] acetaminophen [Tylenol] 650 mg PO Q6H PRN PRN #30 tab 02/03/21 [Rx Last Taken Unknown] aspirin 81 mg PO BIDCM 02/03/21 [History Last Taken Unknown] losartan 25 mg PO DAILY 02/03/21 [History Last Taken Unknown] Allergy/AdvReac Type Severity Reaction Status Date / Time codeine Allergy Unknown Verified 01/31/21 11:26 levofloxacin [From Levaquin] Allergy Unknown Verified 01/31/21 11:26 morphine Allergy goes Verified 01/31/21 11:26 crazy Tetracyclines Allergy Unknown Verified 01/31/21 11:26 Family History (Updated 02/03/21 @ 18:[address] Pauline Ramesh DO) Father CVA (cerebral vascular accident) Brother CVA (cerebral vascular accident) Surgical History H/O colonoscopy History of appendectomy History of left knee replacement History of surgical removal of testicle Social History (Updated 02/03/21 @ 18:[address] Pauline Ramesh DO) Smoking Status: Never smoker alcohol intake: current alcohol intake frequency: holidays/special occasions only ROS Constitutional Constitutional: Reports snoring and stops breathing during sleep; Denies anorexia, change in weight, chills, fever(s), frequent falls or headache(s) Eyes Eyes: Denies blurry vision ENT HEENT: Reports abnormal hearing; Denies change in voice, dental pain, disequillibrium, dry mouth, dysphagia, loss taste/smell or sore throat Cardiovascular Cardiovascular: Reports dyspnea, hypertension and numbness in extremities; Denies claudication, dizziness, edema, orthopnea, orthostatic symptoms or weakness in extremities Respiratory/Chest Respiratory/Chest: Reports chest tightness, dyspnea and change in breast shape Gastrointestinal Gastrointestinal: Reports fecal incontinence and loose stools; Denies abdominal pain, anorexia, change in bowel habits, melena, nausea or vomiting Genitourinary Genitourinary: Reports change in urinary stream and difficulty urinating; Denies abdominal discomfort or burning urination Musculoskeletal Musculoskeletal: Reports joint pain and other Details: R hip pain due to recent R hip fracture and subsequent ORIF Integumentary Integumentary: Denies jaundice, non-healing lesions or rash Neurologic Neurologic: Reports paresthesias LUE Psychiatric Psychiatric: Reports systems reviewed and no addt'l complaints, except as documented Hematologic/Lymphatic Hematologic/Lymphatic: Reports easy bruising Allergic/Immunologic Allergic/Immunologic: Reports wheezing and asthma Vital Signs Vital Signs Vital Signs: 02/03/21 16:26 Temperature 97.8 F Temperature Source Oral Pulse Rate 72 Respiratory Rate 16 Blood Pressure 110/46 L Blood Pressure Mean 67 Blood Pressure Source Monitor Blood Pressure Position Semi-Fowlers Blood Pressure Location Right Arm Pulse Ox 97 Oxygen Delivery Method Room Air Weight Weight: 143 lb 1.28 oz Body Mass Index (BMI) 23.8 Physical Exam Const alert, oriented x3 and no apparent distress Constitutional Narrative: Lying in bed and as long as you do not move the R leg the pain is OK General Appearance: cooperative, well kempt and well developed HEENT normocephalic and moist oral mucous membranes HEENT Narrative: He is deaf in the left ear and he has a hearing aid in the R ear Head and Scalp: normocephalic and atraumatic Mouth: No thrush Eyes PERRL and EOMs intact bilaterally Sclera: sclera normal Neck Neck Narrative: BL carotid bruits Carotids: normal carotid upstroke and other Other Details: Carotid pulse volume is normal Chest inspection of chest normal Chest Narrative: Mild gynecomastia since he has had a bilateral orchiectomy for prostate cancer Chest: symmetrical chest wall rise Resp normal respiratory effort, normal air movement, no retractions, no use of accessory muscles and clear to auscultation bilaterally Effort and Inspection: able to speak in complete sentences Cardio regular rate, regular rhythm, S1 normal heart sound, S2 normal heart sound and no gallops Cardio Narrative: He has a soft systolic murmur heard at the lower left sternal border and apex, 2/6 GI normal to inspection, nondistended, normoactive bowel sounds, soft to palpation and non-tender GI Narrative: Increased tympany, no guarding with palpation. Extremity Extremity Narrative: No clubbing. Radial pulses are +2 bilaterally. Dorsalis pedis pulse on the right is +2 and not palpable on the left. Posterior tibial is also not palpable on the left. The popliteal pulse is +2 and the left femoral pulses +2 without bruits. Good capillary refill. General Extremity: edema bilateral (Bilateral pitting edema limited to the ankle, medial side.) Skin no rashes or lesions noted Skin Narrative: He has an incision in the right hip due to recent ORIF with placement of an intramedullary nail. Neuro CN's II-XII intact bilaterally and no focal motor deficits Neuro Narrative: He complains of paresthesias in the left hand which come and go. It sometimes awakens him at night. He states that it involves all 5 fingers. Psych Appearance: grossly normal, appropriate and well kempt Attitude: calm Activity / Motor Behavior: appropriate eye contact Speech: normal speech Mood & Affect: euthymic mood Thought Process: normal thought process Assessment & Plan Assessment/Plan (1) Closed intertrochanteric fracture of right hip: (2) History of open reduction and internal fixation (ORIF) procedure: (3) Physical debility: (4) Acute on chronic anemia: (5) Normochromic normocytic anemia: (6) Hyperglycemia: (7) Presbycusis, bilateral: (8) Asthma: QUALIFIERS: Asthma complication type: uncomplicated Asthma persistence: persistent Asthma severity: moderate Qualified Code(s): J45.40 - Moderate persistent asthma, uncomplicated (9) Hypertension: QUALIFIERS: Hypertension type: essential hypertension Qualified Code(s): I10 - Essential (primary) hypertension (10) Bilateral carotid bruits: PLAN: PLAN PT for gait stability OT for ADL's Analgesics as needed Bowel protocol Fall precautions Assess for Anxiety/Depression GI prophylaxis not necessary at this time. He denies any dyspepsia and has no history of peptic ulcer disease DVT prophylaxis with ASA 81 mg twice daily per orthopedics Follow up with Dr. Bala Fournier and Dr. Peter Brown following DC from [facility] AM lab including CMP, HGBA1C, Mag, TSH He will need to get carotid US as an OP. His father and brother had CVA's and he has BL carotid bruits. He c/o chest tightness and SOB however he is CTA with no tachypnea and no conversational dyspnea. At some point would consider a stress test. Visit Charges Inpatient E&M: 93550 Init Hosp L3
--- NOTE | 2021-02-03 17:12 | PCM.RU.PYE ---
Admission Information Primary Diagnosis:: Physical debility secondary to recent mechanical fall resulting in a right hip fracture. Status Changes from Prescreening?: No changes Identified Actual Problem List:: Falls, Skin Intergrity, Pain, ALteration in Cmfrt, Alteration in Sleep, Mobility Impaired, Self Care Deficit, BP, Hypertension and Alteration-Leisure Activ. Potential Problem List:: DVT, Bleeding, Infection, UTI, Aspiration, Falls, Skin Integrity and Depression Risk of Complications DVT: KITA Navarro and - (ASA 81 mg p.o. twice daily prescribed by orthopedics.) Bleeding: Monitor Lab Values, Nursing to Teach Precautions for anti-coagulation therapy., Wound, if applicable, to be assessed every shift. and Stroke patients assessed for lethargy or change in status. Infection: Clinical Staff to Monitor for S/S of infection: and S/S of infection include fever, redness, warmth, etc. Urinary Tract Infection: Monitor for frequency, burning, discomfort, or incontinence. and Nursing will obtain urine sample for urinalysis and C&S when ordered. Aspiration: Clinical staff will monitor for coughing, drooling, congestion., Speech will evaluate swallowing and dsyphasia. and Nursing will monitor patient swallowing during meals. Falls: Patient will be evaluated for Fall Precautions and Patient will be placed on Fall Precautions as indicated per protocol. Skin Breakdown: Nursing will assess skin daily using assessment tool. and Nursing will place on Skin Breakdown Precautions as indicated. Pain: Clinical staff will assess patient's pain level per protocol., Medications will be given, if needed, and the pain level reassessed. and Other methods: Massage, distraction, decrease stimulus, etc. used PRN. Plan of Care Patient requires physician specializing in physical medicine and rehab oversight to provide close medical supervision of rehab issues including: Pain Management, Sleep Problems, Bowel and Bladder, Medical and co-morbidity Management, DVT prophylaxis, Rehabilitation Leadership and Coordination of treatment team Patient needs Physical Therapy: For a minimum of 1 hour and At least 5 out of 7 days Patient needs Physical Therapy to improve:: Mobility, Strengthening, Transfers, Stretching, ROM, Endurance, Stairs, Gait and Balance Patient needs Occupational Therapy: For a minimum of 1 hour and At least 5 out of 7 days Patient needs Occupational Therapy to improve ADL's incl.: Eating, Grooming, Bathing, Dressing, Toileting, Toilet transfers, Community Reintegration, Higher functioning activities, Household tasks, Adaptive Equipment, Splinting and Other activities as determined Patient requires 24/7 Rehabilitation Nursing for: Pain Issues, Identifying and preventing risk factors, Monitoring and reporting current medical conditions, Assisting with ambulation, transfer, and all ADL's, Teaching patients about disease process and medications, Family teaching, Providing safe environment, Bowel and Bladder Issues, Skin integrity and Medication Management Patient needs Training Instructor/ Case Management for: Discharge Planning, Arranging Home Equipment or Services and Family Interventions Patient needs Dietary and Nutrition Services for: Adequate Nutrition, Nutritional Supplements and Nutritional Education Goals Patient will remain: free from falls and or injury at time of discharge. Patient will perform bed mobility at: MOD I level of assist. Patient will complete transfers from bed to chair at: MOD I level of assist. Patient will ambulate: 100 feet and with LRD Patient will complete upper body dressing at: MOD I level of assist. Patient will complete lower body dressing at: MOD I level of assist. Patient will complete toileting at: MOD I level of assist. Patient will perform bathing at: MOD I level of assist. Patient will complete grooming at: MOD I level of assist. Patient will complete home management skills at: MOD I level of assist. Patient will achieve: - (1 curb step) Patient will have pain level of: of 3 or less Patient's skin will: remain intact Patient will receive: adequate nutrition. Discharge Planning Pt Prognosis for Sig. Practical Improv. w/in Reasonable Time: Good Estimated Length of stay (days): 10 Anticipated D/C Destination: Home Was Preadmission Assessment Accurate?: Yes
--- NOTE | 2021-02-03 17:31 | NURSING ---
pt and daughter aware of visting hours and team meeting
[2021-02-03 19:09] VITALS: BP 104/52; PULSE 75; RESP 18; TEMP 36.7; O2SAT 96
[2021-02-03 19:42] VITALS: PULSE 78; RESP 20; RESP 22; O2SAT 98
[2021-02-03] MEDS: Ipratropium/Albuterol Sulfate 3 ML AMPUL.NEB INHALATION (19:42)
[2021-02-03] MEDS: Senna/Docusate Sodium 1 Tablet 2 TABLET PO (20:51)
[2021-02-03] MEDS: Acetaminophen 500 MG Tablet 1000 MG PO (20:52)
[2021-02-03] MEDS: Fluticasone Propion/Salmeterol 250-50 Inhaler 1 PUFF INHALATION (20:53)
[2021-02-03 22:00] VITALS: PULSE 75; RESP 18
[2021-02-04] MEDS: traMADol 50 MG Tablet PO ×2 (05:21→11:21)
[2021-02-04] MEDS: 0.9% Saline Lock 10 ML Syringe IV ×2 (05:22→16:51)
[2021-02-04 05:42] LABS: Hematocrit 24.5 % (40-54)
[2021-02-04 06:10] LABS: ALB/GLOB Ratio 0.6 RATIO (0.9-2.4); AST(SGOT) 18 U/L (15-37); Alanine Aminotransfer ALT/SGPT 18 U/L (16-61); Albumin, Serum 2.2 g/dL (3.2-5.0); Alkaline Phosphatase 55 U/L (45-117); Anion Gap 6 (5-15); BUN 20 mg/dL (7-18); BUN/Creat Ratio 25.3 RATIO (10-20); Calcium,Total 8.1 mg/dL (8.5-10.1); Chloride 103 mmol/L (98-107); Creatinine, Serum 0.79 mg/dL (0.70-1.30); EST Glomerular Filtration Rate 100 mL/min (>60); Est Glom Filt Rate - Afr Amer 121 mL/min (>60); Estimated Creatinine Clearance 51.25 ml/min; Globulin 3.4 g/dL (2.2-4.2); Glucose 104 mg/dL (74-106); Magnesium 2.3 mg/dL (1.6-2.6); Potassium 4.6 mmol/L (3.5-5.1); Protein, Total 5.6 g/dL (6.4-8.2); Sodium Level 135 mmol/L (136-145)
[2021-02-04 06:35] VITALS: PULSE 80; RESP 19; O2SAT 97
[2021-02-04] MEDS: Ipratropium/Albuterol Sulfate 3 ML AMPUL.NEB INHALATION ×2 (06:35→14:10)
[2021-02-04 07:22] VITALS: BP 139/57; PULSE 73; RESP 16; TEMP 36.8; O2SAT 96
[2021-02-04 07:33] LABS: Hemoglobin A1c 5.6 % (3.8-5.6)
[2021-02-04] MEDS: Multivitamins,Therapeutic Tablet 1 TABLET PO (08:10)
[2021-02-04] MEDS: Fluticasone Propion/Salmeterol 250-50 Inhaler 1 PUFF INHALATION ×2 (08:10→20:16)
[2021-02-04] MEDS: Senna/Docusate Sodium 1 Tablet 2 TABLET PO ×2 (08:10→20:14)
[2021-02-04] MEDS: Losartan Potassium 25 MG Tablet PO (08:10)
[2021-02-04] MEDS: Aspirin 81 MG TAB.CHEW PO ×2 (08:11→16:20)
--- NOTE | 2021-02-04 08:57 | PN_ITS ---
Subjective Subjective Afebrile VSS Maintaining appropriate oxygen saturation on RA Discussed with nursing - no problems that need addressed Reviewed the PT/OT/ST notes Medication list reviewed. All labs personally reviewed. Hemoglobin today is 8.0, down from 11.8 on 01/31/2021. Sodium is stable at 135. Potassium is 4.6. The BUN is 20 and creatinine is 0.79, down from 0.96 at admission to the hospital. Hemoglobin A1c is 5.6. Calcium is low at 8.1 but when corrected for hypoalbuminemia the calcium is within normal limits. LFTs are unremarkable. Magnesium is normal at 2.3. TSH is normal at 2.8. He would have slept well last night except he was up several times to urinate. The pain is better today. He is tolerating the Tramadol without nausea, drowsiness or craziness. He denies calf pain, chest pain, SOB. I saw him while he was riding the [employer] and he did not appear to be in any distress. He c/o pain in the anterior R thigh. OT noticed a significant improvement in his ability to do therapy after the Tramadol was given. Objective Data Objective Data Vital Signs: Vital Signs Temp Pulse Resp BP Pulse Ox 98.2 F 73 16 139/57 H 96 02/04/21 07:22 02/04/21 07:22 02/04/21 07:22 02/04/21 07:22 02/04/21 07:22 Oxygen Flow Rate (L/min) 2 Oxygen Delivery Method Room Air Weight: 143 lb 1.28 oz Body Mass Index (BMI) 23.8 Intake & Output: Intake and Output for Last 24 Hours 02/02/21 02/03/21 02/04/21 23:59 23:59 23:59 Intake Total 120 / 120 180 / 180 Output Total 200 / 200 1000 / 1000 Balance -80 / -80 -820 / -820 Lab / Micro Data Result Diagrams: 02/04/21 05:35 02/04/21 05:35 Labs: Laboratory Results - last 24 hr 02/04/21 02/04/21 02/04/21 05:35 05:35 05:35 Hgb 8.0 L Hct 24.5 L Sodium 135 L Potassium 4.6 Chloride 103 Carbon Dioxide 26.0 Anion Gap 6 BUN 20 H Creatinine 0.79 Estim Creat Clear Calc 51.25 Est GFR (MDRD) Af Amer 121 Est GFR (MDRD) Non-Af 100 BUN/Creatinine Ratio 25.3 H Glucose 104 Hemoglobin A1c 5.6 Calcium 8.1 L Magnesium 2.3 Total Bilirubin 0.40 AST 18 ALT 18 Alkaline Phosphatase 55 Total Protein 5.6 L Albumin 2.2 L Globulin 3.4 Albumin/Globulin Ratio 0.6 L TSH 2.80 Physical Exam Const alert, oriented x3 and no apparent distress General Appearance: cooperative HEENT moist oral mucous membranes Resp normal respiratory effort and clear to auscultation bilaterally Resp Narrative: he was on the Nu-step and had no tachypnea and no conversational dyspnea. Cardio regular rhythm, S1 normal heart sound, S2 normal heart sound and no gallops GI normal to inspection, nondistended, normoactive bowel sounds, soft to palpation and non-tender Skin Rashes: no rashes Assessment & Plan Assessment/Plan (1) Closed intertrochanteric fracture of right hip: QUALIFIERS: Encounter type: subsequent encounter Fracture alignment: nondisplaced Fracture healing: with routine healing Qualified Code(s): S72.144D - Nondisplaced intertrochanteric fracture of right femur, subsequent encounter for closed fracture with routine healing PLAN: follow up with Dr. Peter Diaz post DC (2) Physical debility: PLAN: Continue PT and OT (3) Acute on chronic anemia: PLAN: No dyspnea and no lightheadedness. Continue to monitor. (4) BPH (benign prostatic hyperplasia): QUALIFIERS: Lower urinary tract symptom presence: symptoms present Lower urinary tract symptom detail: post-void dribbling Qualified Code(s): N40.1 - Benign prostatic hyperplasia with lower urinary tract symptoms; N39.43 - Post-void dribbling PLAN: Start Flomax (5) Normochromic normocytic anemia: PLAN: This is chronic. Why? TSH is normal. Calcium is not elevated. No significant renal disease. Will check a hemoccult stool today (6) Asthma: QUALIFIERS: Asthma severity: moderate Asthma persistence: persistent Asthma complication type: uncomplicated Qualified Code(s): J45.40 - Moderate persistent asthma, uncomplicated PLAN: Change the aerosols to PRN. Continue the Fluticasone inhaler q 12H. Visit Charges Inpatient E&M: 92945 Subs Hosp L2
[2021-02-04 14:10] VITALS: RESP 16
[2021-02-04] MEDS: Arthritis Pain Compound 60 CLICK TUBE TOPICAL ×2 (16:19→20:14)
[2021-02-04] MEDS: Tamsulosin HCl 0.4 MG Capsule PO (16:41)
[2021-02-04 21:40] VITALS: BP 129/51; PULSE 70; RESP 16; TEMP 36.7; O2SAT 98
[2021-02-05] MEDS: 0.9% Saline Lock 10 ML Syringe IV ×2 (05:25→21:23)
[2021-02-05] MEDS: Acetaminophen 500 MG Tablet 1000 MG PO ×3 (05:28→21:04)
[2021-02-05] MEDS: Ipratropium/Albuterol Sulfate 3 ML AMPUL.NEB INHALATION ×2 (07:14→19:41)
[2021-02-05 07:16] VITALS: PULSE 78; RESP 18; O2SAT 96
[2021-02-05] MEDS: Arthritis Pain Compound 60 CLICK TUBE TOPICAL ×2 (07:39→21:04)
[2021-02-05] MEDS: Multivitamins,Therapeutic Tablet 1 TABLET PO (07:39)
[2021-02-05] MEDS: traMADol 50 MG Tablet PO ×2 (07:39→13:45)
[2021-02-05] MEDS: Aspirin 81 MG TAB.CHEW PO ×2 (07:39→17:06)
[2021-02-05] MEDS: Fluticasone Propion/Salmeterol 250-50 Inhaler 1 PUFF INHALATION ×2 (07:39→21:04)
[2021-02-05] MEDS: Senna/Docusate Sodium 1 Tablet 2 TABLET PO (07:40)
[2021-02-05 08:04] VITALS: BP 111/53; PULSE 72; RESP 16; TEMP 36.8; O2SAT 93
--- NOTE | 2021-02-05 09:51 | CASEMGMT ---
Social Work IDT met with patient for Team meeting. Discussed patient's progress in therapy and nursing. Pt progressing well. Using AE to improve on independence with ADLs, nursing addressing incision and pain. The goal is for pt to return home with daughter. Dtr does work several days throughout the week. Pt would need to be safe at home alone at times and climb the 7 steps to enter his home. [facility] Liaison assisting with [facility] and [place]. SW will continue to assist. Will ReTeam. Lydia Mujica, KEELY ESQUIVELW
--- NOTE | 2021-02-05 10:40 | PN_ITS ---
Subjective Subjective Mack was seen on team rounds today. No family was able to be present or participate by phone. His daughter is working. Afebrile VSS - he had low BP late yesterday afternoon and was lightheaded. He told the RN he had stopped taking Cozaar at home due to lightheadedness and this resolved with the discontinuation of the medication. Maintaining appropriate oxygen saturation on RA He feels a little constipated and was given prune juice this AM. Discussed with nursing - He has a small amount of dried drainage on the dressing....nothing new since transfer to rehab. Reviewed the PT/OT notes Medication list reviewed. He has now agreed to take the Tylenol and the pain control is better today. He denies lightheadedness today. He started Flomax yesterday for urine retention > 400 cc's. He denies calf pain, CP, SOB, dysuria, N/V. He slept better last night. Objective Data Objective Data Vital Signs: Vital Signs Temp Pulse Resp BP Pulse Ox 98.2 F 72 16 111/53 L 93 02/05/21 08:04 02/05/21 08:04 02/05/21 08:04 02/05/21 08:04 02/05/21 08:04 Oxygen Flow Rate (L/min) 2 Oxygen Delivery Method Room Air Weight: 143 lb 1.28 oz Body Mass Index (BMI) 23.8 Intake & Output: Intake and Output for Last 24 Hours 02/03/21 02/04/21 02/05/21 23:59 23:59 23:59 Intake Total 120 / 120 300 / 300 360 / 360 Output Total 200 / 200 1800 / 1800 425 / 425 Balance -80 / -80 -1500 / -1500 -65 / -65 Lab / Micro Data Result Diagrams: 02/04/21 05:35 02/04/21 05:35 Physical Exam Const alert, oriented x3 and no apparent distress Constitutional Narrative: Sitting in the recliner at the bedside. 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 Resp normal respiratory effort and clear to auscultation bilaterally Auscultation: diminished lung sounds; Negative for rales or wheezes Cardio regular rate, regular rhythm, S1 normal heart sound, S2 normal heart sound and no gallops Cardio Narrative: no change in the MM since admission. Heart Sounds: murmur GI normal to inspection, nondistended, normoactive bowel sounds, soft to palpation, non-tender and non-distended Extremity no calf tenderness Skin Rashes: no rashes Neuro CN's II-XII intact bilaterally Psych affect normal Appearance: appropriate Assessment & Plan Assessment/Plan (1) Closed intertrochanteric fracture of right hip: QUALIFIERS: Encounter type: subsequent encounter Fracture alignment: nondisplaced Fracture healing: with routine healing Qualified Code(s): S72.144D - Nondisplaced intertrochanteric fracture of right femur, subsequent encounter for closed fracture with routine healing PLAN: follow up with Dr. Peter Diaz post DC (2) Physical debility: PLAN: Continue PT and OT (3) Acute on chronic anemia: PLAN: No dyspnea and no lightheadedness. Continue to monitor. (4) BPH (benign prostatic hyperplasia): QUALIFIERS: Lower urinary tract symptom presence: symptoms present Lower urinary tract symptom detail: post-void dribbling Qualified Code(s): N40.1 - Benign prostatic hyperplasia with lower urinary tract symptoms; N39.43 - Post-void dribbling PLAN: Started Flomax on 02/04/21. will check orthostatics in the AM (5) Normochromic normocytic anemia: PLAN: This is chronic. Why? TSH is normal. Calcium is not elevated. No significant renal disease. Heme stool ordered....no BM yet (6) Asthma: QUALIFIERS: Asthma severity: moderate Asthma persistence: persis tent Asthma complication type: uncomplicated Qualified Code(s): J45.40 - Moderate persistent asthma, uncomplicated PLAN: Change the aerosols to PRN. Continue the Fluticasone inhaler q 12H. (7) Urine retention: PLAN: straight cath PRN > 400 cc retention. Nursing had no trouble passing the catheter. 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 Visit Charges Inpatient E&M: 42766 Subs Hosp L2
[2021-02-05] MEDS: Tamsulosin HCl 0.4 MG Capsule PO (17:06)
[2021-02-05 19:41] VITALS: PULSE 75; RESP 17
[2021-02-05 21:00] VITALS: BP 110/45; PULSE 68; RESP 18; TEMP 36.6; O2SAT 95
[2021-02-05] MEDS: Famotidine 20 MG Tablet PO (21:08)
[2021-02-05 21:41] LABS: Bedside Glucose 106 mg/dL (70-110)
--- NOTE | 2021-02-06 02:24 | NURSING ---
REVIEWED AND AGREE WITH AUDIT PARTNER ASSESSMENT
[2021-02-06] MEDS: Acetaminophen 500 MG Tablet 1000 MG PO ×3 (05:31→21:40)
[2021-02-06] MEDS: traMADol 50 MG Tablet PO ×2 (05:32→13:50)
[2021-02-06 06:30] VITALS: PULSE 71; RESP 18; O2SAT 96
[2021-02-06] MEDS: Ipratropium/Albuterol Sulfate 3 ML AMPUL.NEB INHALATION ×2 (06:30→20:05)
[2021-02-06 06:41] LABS: Bedside Glucose 98 mg/dL (70-110)
[2021-02-06 07:32] VITALS: BP 114/49; PULSE 75; RESP 16; TEMP 36.8; O2SAT 97
[2021-02-06 07:33] VITALS: BP 107/46; BP 114/49; BP 138/53; PULSE 75; PULSE 91
[2021-02-06] MEDS: Arthritis Pain Compound 60 CLICK TUBE TOPICAL ×2 (08:20→21:41)
[2021-02-06] MEDS: Multivitamins,Therapeutic Tablet 1 TABLET PO (08:20)
[2021-02-06] MEDS: Fluticasone Propion/Salmeterol 250-50 Inhaler 1 PUFF INHALATION ×2 (08:20→21:40)
[2021-02-06] MEDS: Aspirin 81 MG TAB.CHEW PO ×2 (08:20→16:33)
[2021-02-06] MEDS: Famotidine 20 MG Tablet PO ×2 (08:20→21:41)
--- NOTE | 2021-02-06 09:03 | NURSING ---
0600 while doing orthostatic vs this am pt while in standing position, reported that he was feeling some dizziness and was having mild sob. pt instructed to sit in recliner and blood sugar taken at this time and was 95, respiratory called for breathing tx. pt ate a snack of parker crackers and banana. will continue to monitor and rn aware. 0630 breathing tx completed and rn checked on pt and he reported that he was feeling better.
[2021-02-06] MEDS: Tamsulosin HCl 0.4 MG Capsule PO (16:34)
[2021-02-06 19:42] VITALS: BP 139/58; PULSE 70; RESP 18; TEMP 36.8; O2SAT 96
--- NOTE | 2021-02-06 19:57 | NURSING ---
PT SITTING IN CHAIR. REQUESTING AEROSOL TREATMENT HIS BREATHING FEELS A LITTLE TIGHT TO ANTERIOR CHEST. LUNG SOUNDS ARE CLEAR THROUGHOUT. RESP THERAPY NOTIFIED OF PT'S REQUEST. PT DOES I.S. AND RAISES IT TO 1700 ML.
[2021-02-06 20:05] VITALS: PULSE 76; RESP 16
[2021-02-06] MEDS: 0.9% Saline Lock 10 ML Syringe IV (21:41)
[2021-02-06] MEDS: Senna/Docusate Sodium 1 Tablet 2 TABLET PO (21:41)
[2021-02-07] MEDS: Acetaminophen 500 MG Tablet 1000 MG PO ×3 (05:34→21:27)
[2021-02-07] MEDS: traMADol 50 MG Tablet PO ×2 (06:06→12:29)
[2021-02-07] MEDS: Arthritis Pain Compound 60 CLICK TUBE TOPICAL ×2 (08:01→21:28)
[2021-02-07] MEDS: Fluticasone Propion/Salmeterol 250-50 Inhaler 1 PUFF INHALATION ×2 (08:01→21:26)
[2021-02-07] MEDS: Famotidine 20 MG Tablet PO ×2 (08:02→21:28)
[2021-02-07] MEDS: Aspirin 81 MG TAB.CHEW PO ×2 (08:02→16:48)
[2021-02-07] MEDS: Multivitamins,Therapeutic Tablet 1 TABLET PO (08:02)
[2021-02-07 08:10] VITALS: BP 128/55; PULSE 75; RESP 12; TEMP 36.7; O2SAT 95
[2021-02-07 13:09] VITALS: PULSE 77; RESP 16; O2SAT 96
[2021-02-07] MEDS: Ipratropium/Albuterol Sulfate 3 ML AMPUL.NEB INHALATION (13:09)
[2021-02-07] MEDS: Tamsulosin HCl 0.4 MG Capsule PO (16:48)
[2021-02-07 19:18] VITALS: BP 120/67; PULSE 72; RESP 18; TEMP 36.7; O2SAT 98
[2021-02-07] MEDS: Senna/Docusate Sodium 1 Tablet 2 TABLET PO (21:27)
[2021-02-07 21:36] VITALS: PULSE 72; RESP 16
[2021-02-08] MEDS: Acetaminophen 500 MG Tablet 1000 MG PO ×3 (05:09→21:23)
[2021-02-08] MEDS: Senna/Docusate Sodium 1 Tablet 2 TABLET PO ×2 (07:57→21:22)
[2021-02-08] MEDS: Famotidine 20 MG Tablet PO ×2 (07:57→21:22)
[2021-02-08] MEDS: Fluticasone Propion/Salmeterol 250-50 Inhaler 1 PUFF INHALATION ×2 (07:57→21:23)
[2021-02-08] MEDS: Aspirin 81 MG TAB.CHEW PO ×2 (07:57→17:26)
[2021-02-08] MEDS: Multivitamins,Therapeutic Tablet 1 TABLET PO (07:57)
[2021-02-08] MEDS: traMADol 50 MG Tablet PO (08:01)
[2021-02-08 08:15] VITALS: BP 150/62; PULSE 74; RESP 16; TEMP 36.5; O2SAT 95
[2021-02-08 09:37] VITALS: PULSE 70; RESP 16
[2021-02-08] MEDS: Ipratropium/Albuterol Sulfate 3 ML AMPUL.NEB INHALATION (09:37)
[2021-02-08] MEDS: Arthritis Pain Compound 60 CLICK TUBE TOPICAL ×2 (11:00→21:22)
[2021-02-08] MEDS: Tamsulosin HCl 0.4 MG Capsule PO (17:26)
[2021-02-08 18:56] VITALS: BP 124/58; PULSE 76; RESP 18; TEMP 36.4; O2SAT 95
[2021-02-08 21:32] VITALS: PULSE 71; RESP 16
[2021-02-09] MEDS: Acetaminophen 500 MG Tablet 1000 MG PO ×3 (05:11→21:17)
[2021-02-09] MEDS: traMADol 50 MG Tablet PO ×2 (07:29→13:31)
[2021-02-09] MEDS: Aspirin 81 MG TAB.CHEW PO ×2 (07:29→16:47)
[2021-02-09] MEDS: Senna/Docusate Sodium 1 Tablet 2 TABLET PO ×2 (07:30→21:17)
[2021-02-09] MEDS: Arthritis Pain Compound 60 CLICK TUBE TOPICAL ×2 (07:30→21:17)
[2021-02-09] MEDS: Multivitamins,Therapeutic Tablet 1 TABLET PO (07:30)
[2021-02-09] MEDS: Famotidine 20 MG Tablet PO ×2 (07:30→21:17)
[2021-02-09] MEDS: Fluticasone Propion/Salmeterol 250-50 Inhaler 1 PUFF INHALATION ×2 (07:31→21:18)
[2021-02-09 07:35] VITALS: PULSE 70; RESP 18; O2SAT 95
[2021-02-09] MEDS: Ipratropium/Albuterol Sulfate 3 ML AMPUL.NEB INHALATION ×2 (07:35→19:31)
[2021-02-09 08:17] VITALS: BP 112/58; PULSE 72; RESP 16; TEMP 36.6; O2SAT 97
--- NOTE | 2021-02-09 09:30 | CASEMGMT ---
Social Work Spoke with patient about DC plans. Pt would like to continue with therapy a few more days despite dtr and family wanting him home. Pt is progressing well, but IDT agrees he has more progress to make. Pt agreed to Reteam and revisit DC. Will continue to follow. Lydia Mujica, [employer] ENTERTAINER MEAT COUNTER CLERK
--- NOTE | 2021-02-09 14:00 | CASEMGMT ---
Social Work Left message with dtr to advise Team on is at 10 am. KEELY DunnW
--- NOTE | 2021-02-09 16:28 | CHAPLAIN ---
Type of Pastoral Visit ___ Initial Visit _x__ Follow-up Visit ___ On-call Visit ___ General Patient Visit ___ Spiritual Assessment ___ Family Conference ___ Bereavement ___ Rapid Response ___ Code Blue ___ Other (describe below) Pastoral Care Referral From _x__ Patient ___ Family ___ Nurse ___ Physician ___ Speed Runner ___ House Director ___ Other (describe below) Sacrament/Intervention _x__ Active listening ___ Anointing ___ Bahai ___ Bereavement ___ Communion ___ Eboni exploration ___ _x__ Life review _x__ Prayer ___ Reconciliation ___ Sacrament of Sick _x__ Supportive presence ___ Wedding ___ Other (describe below) Pastoral Comments
[2021-02-09] MEDS: Tamsulosin HCl 0.4 MG Capsule PO (16:47)
[2021-02-09 19:18] VITALS: BP 117/55; PULSE 72; RESP 17; TEMP 36.4; O2SAT 94
[2021-02-09 19:25] VITALS: PULSE 75; RESP 16; O2SAT 95
[2021-02-09 20:26] VITALS: PULSE 76; RESP 16
[2021-02-10] MEDS: Acetaminophen 500 MG Tablet 1000 MG PO ×3 (05:29→20:23)
[2021-02-10 05:49] VITALS: PULSE 78; RESP 16
[2021-02-10] MEDS: Ipratropium/Albuterol Sulfate 3 ML AMPUL.NEB INHALATION ×2 (05:49→19:45)
[2021-02-10] MEDS: traMADol 50 MG Tablet PO (06:26)
[2021-02-10] MEDS: Senna/Docusate Sodium 1 Tablet 2 TABLET PO (07:44)
[2021-02-10] MEDS: Famotidine 20 MG Tablet PO ×2 (07:44→20:23)
[2021-02-10] MEDS: Fluticasone Propion/Salmeterol 250-50 Inhaler 1 PUFF INHALATION ×2 (07:44→20:25)
[2021-02-10] MEDS: Arthritis Pain Compound 60 CLICK TUBE TOPICAL ×2 (07:44→20:24)
[2021-02-10] MEDS: Aspirin 81 MG TAB.CHEW PO ×2 (07:45→16:15)
[2021-02-10] MEDS: Multivitamins,Therapeutic Tablet 1 TABLET PO (07:45)
[2021-02-10 08:58] VITALS: BP 140/59; PULSE 71; RESP 18; TEMP 36.4; O2SAT 93
[2021-02-10] MEDS: Ipratropium Bromide 0.06% NASAL SPRAY 2 SPRAY NASAL ×2 (10:25→20:24)
[2021-02-10] MEDS: Tamsulosin HCl 0.4 MG Capsule PO (16:15)
--- NOTE | 2021-02-10 17:40 | PCM.PROGNOTE ---
Subjective Subjective Afebrile Vital signs are stable and the blood pressure is well controlled. No more lightheadedness since the Cozaar was discontinued. Maintaining appropriate oxygen saturation on room air. Good oral intake Discussed with nursing-no problems that need addressed. I reviewed the PT and OT notes. The medication list was reviewed. Pain control is adequate. He was started on Flomax and will continue to monitor for large post void residuals. He denies chest pain, shortness of breath, calf pain, dysuria, nausea/vomiting, abdominal pain. He slept well last night. Objective Data Objective Data Vital Signs: Vital Signs Temp Pulse Resp BP Pulse Ox 97.6 F L 71 18 140/59 H 93 02/10/21 08:58 02/10/21 08:58 02/10/21 08:58 02/10/21 08:58 02/10/21 08:58 Oxygen Flow Rate (L/min) 2 Oxygen Delivery Method Room Air Weight: 140 lb 6.951 oz Body Mass Index (BMI) 23.8 Orthostatic Vital Signs Start: 02/05/21 09:29 Freq: Status: Active Protocol: Activity Type Activity Date Activity User E-Sign Co-Sign Detail Recorded Client Recorded Date Recorded By Document 02/06/21 07:33 CDA [id number] 02/06/21 07:34 CDA 02/06/21 07:33 Orthostatic Vitals Standing -Blood Pressure (90/60-120/80) 107/46 L -Extremity Use Right Arm -Pulse Rate (60-100) 91 Sitting -Blood Pressure (90/60-120/80) 114/49 L -Extremity Use Right Arm -Pulse Rate (60-100) 75 Lying -Blood Pressure (90/60-120/80) 138/53 H -Extremity Use Right Arm -Pulse Rate (60-100) 75 Intake & Output: Intake and Output for Last 24 Hours 02/08/21 02/09/21 02/10/21 23:59 23:59 23:59 Intake Total 1360 / 1360 1440 / 1440 840 / 840 Output Total 650 / 650 1200 / 1200 1000 / 1000 Balance 710 / 710 240 / 240 -160 / -160 Lab / Micro Data Result Diagrams: 02/11/21 05:40 02/11/21 05:40 Micro: Microbiology 02/05/21 12:15 Stool Stool Occult Blood (VALARIE) - Final Occult Blood Positive Physical Exam Const alert, oriented x3, no apparent distress, healthy appearing and well nourished General Appearance: cooperative and comfortable Resp normal respiratory effort, no use of accessory muscles and clear to auscultation bilaterally Resp Narrative: Breath sounds are diminished but he has fair air exchange. Effort and Inspection: able to speak in complete sentences Cardio regular rate, regular rhythm and no gallops Heart Sounds: murmur GI soft to palpation, non-tender and non-distended GI Narrative: Normal bowel sounds. Extremity normal capillary refill, no calf tenderness and no pedal edema Skin General Skin Exam: no breakdown Rashes: no rashes Neuro Neuro Narrative: No focal neurologic deficits. Assessment & Plan Assessment/Plan (1) Physical debility: (2) Closed intertrochanteric fracture of right hip: QUALIFIERS: Encounter type: subsequent encounter Fracture alignment: nondisplaced Fracture healing: with routine healing Qualified Code(s): S72.144D - Nondisplaced intertrochanteric fracture of right femur, subsequent encounter for closed fracture with routine healing (3) History of open reduction and internal fixation (ORIF) procedure: (4) Acute on chronic anemia: (5) Urine retention: PLAN: Urine retention has resolved with the introduction of Flomax. He has no lightheadedness. Continue therapy Recheck lab in the a.m. Continue scheduled Tylenol for pain relief. Charges/Coding Visit Charges Inpatient E&M: 59201 Subs Hosp L2
[2021-02-10 19:45] VITALS: PULSE 67; RESP 16
[2021-02-10 20:10] VITALS: BP 122/56; PULSE 69; RESP 18; TEMP 36.6; O2SAT 94
[2021-02-11] MEDS: Acetaminophen 500 MG Tablet 1000 MG PO ×3 (05:33→21:05)
[2021-02-11 05:50] LABS: Hematocrit 26.3 % (40-54); Hemoglobin 8.3 g/dL (13.0-16.5); Mean Corp Hgb Conc 31.6 g/dL (32-36); Mean Corpuscular Hgb 29.9 pg (27.0-32.0); Mean Corpuscular Volume 94.6 fL (80-94); Platelet Count 410 K/mm3 (150-450); RBC Distribution Width CV 13.7 % (11.6-14.6); RBC Distribution Width SD 46.1 fl (35.1-43.9); Red Blood Count 2.78 M/mm3 (4.6-6.2); White Blood Count 6.1 K/mm3 (4.4-11.0)
[2021-02-11 06:12] LABS: Anion Gap 7 (5-15); BUN 24 mg/dL (7-18); BUN/Creat Ratio 25.4 RATIO (10-20); Calcium,Total 8.9 mg/dL (8.5-10.1); Chloride 101 mmol/L (98-107); Creatinine, Serum 0.94 mg/dL (0.70-1.30); EST Glomerular Filtration Rate 82 mL/min (>60); Est Glom Filt Rate - Afr Amer 99 mL/min (>60); Estimated Creatinine Clearance 54.52 ml/min; Glucose 92 mg/dL (74-106); Potassium 4.3 mmol/L (3.5-5.1); Sodium Level 134 mmol/L (136-145)
[2021-02-11 07:57] VITALS: BP 139/62; PULSE 70; RESP 16; TEMP 36.7; O2SAT 95
[2021-02-11] MEDS: traMADol 50 MG Tablet PO (08:29)
[2021-02-11] MEDS: Arthritis Pain Compound 60 CLICK TUBE TOPICAL ×2 (08:32→21:06)
[2021-02-11] MEDS: Aspirin 81 MG TAB.CHEW PO ×2 (08:32→18:06)
[2021-02-11] MEDS: Famotidine 20 MG Tablet PO ×2 (08:32→21:05)
[2021-02-11] MEDS: Multivitamins,Therapeutic Tablet 1 TABLET PO (08:32)
[2021-02-11] MEDS: Ipratropium Bromide 0.06% NASAL SPRAY 2 SPRAY NASAL ×2 (08:33→21:05)
[2021-02-11] MEDS: Fluticasone Propion/Salmeterol 250-50 Inhaler 1 PUFF INHALATION ×2 (08:33→21:05)
[2021-02-11] MEDS: Senna/Docusate Sodium 1 Tablet 2 TABLET PO ×2 (08:35→21:06)
[2021-02-11] MEDS: Tamsulosin HCl 0.4 MG Capsule PO (18:06)
[2021-02-11 18:25] VITALS: PULSE 72; RESP 16
[2021-02-11] MEDS: Ipratropium/Albuterol Sulfate 3 ML AMPUL.NEB INHALATION (18:25)
[2021-02-11 21:10] VITALS: BP 118/48; PULSE 65; RESP 17; TEMP 37.1; O2SAT 96
--- NOTE | 2021-02-12 03:10 | NURSING ---
REVIEWED AND AGREE WITH HEALTH AND FITNESS INSTRUCTOR'S FUNCTIONAL ASSESSMENT AND HANDOFF CHARTING.
[2021-02-12] MEDS: Acetaminophen 500 MG Tablet 1000 MG PO ×3 (06:11→22:00)
[2021-02-12 07:38] VITALS: BP 115/55; PULSE 69; RESP 12; TEMP 36.5; O2SAT 93
[2021-02-12] MEDS: Ipratropium Bromide 0.06% NASAL SPRAY 2 SPRAY NASAL ×2 (07:57→21:58)
[2021-02-12] MEDS: Arthritis Pain Compound 60 CLICK TUBE TOPICAL ×2 (07:57→21:57)
[2021-02-12] MEDS: Multivitamins,Therapeutic Tablet 1 TABLET PO (07:57)
[2021-02-12] MEDS: Aspirin 81 MG TAB.CHEW PO ×2 (07:57→17:10)
[2021-02-12] MEDS: Famotidine 20 MG Tablet PO ×2 (07:58→21:58)
[2021-02-12] MEDS: Senna/Docusate Sodium 1 Tablet 2 TABLET PO ×2 (07:58→22:00)
[2021-02-12] MEDS: Fluticasone Propion/Salmeterol 250-50 Inhaler 1 PUFF INHALATION ×2 (07:59→22:00)
[2021-02-12] MEDS: traMADol 50 MG Tablet PO (10:33)
--- NOTE | 2021-02-12 11:53 | PN_ITS ---
Subjective Subjective Male was seen on team rounds today. No family was available to participate. Afebrile VSS Maintaining appropriate oxygen saturation on RA Oral intake is decreased the past few days. Less than 1000 cc. Discussed with nursing - no problems that need addressed Reviewed the PT/OT/ST notes Medication list reviewed. All lab from 02/11/21 was personally reviewed. HGB is stable. Sodium is mildly decreased at 134. BUN is up to 24 and the creat is 0.94....up from 0.79 on 02/04/21. Colleen has been doing very well with therapy. I observed him ambulating in the halls with a FWW and he is standing tall, not tachypneic and he is SBA. He continues to c/o R thigh pain, deepthi high up on the medial side. He denies CP, SOB, palpitations. He has never had a DVT. He is on ASA 81 mg BID for DVT prophylaxis per ortho. He is tolerating the Flomax with no lightheadedness now. Objective Data Objective Data Vital Signs: Vital Signs Temp Pulse Resp BP Pulse Ox 97.7 F L 69 12 115/55 L 93 02/12/21 07:38 02/12/21 07:38 02/12/21 07:38 02/12/21 07:38 02/12/21 07:38 Oxygen Flow Rate (L/min) 2 Oxygen Delivery Method Room Air Weight: 140 lb 6.951 oz Body Mass Index (BMI) 23.8 Orthostatic Vital Signs Start: 02/05/21 09:29 Freq: Status: Active Protocol: Activity Type Activity Date Activity User E-Sign Co-Sign Detail Recorded Client Recorded Date Recorded By Document 02/06/21 07:33 CDA [id number] 02/06/21 07:34 CDA 02/06/21 07:33 Orthostatic Vitals Standing -Blood Pressure (90/60-120/80) 107/46 L -Extremity Use Right Arm -Pulse Rate (60-100) 91 Sitting -Blood Pressure (90/60-120/80) 114/49 L -Extremity Use Right Arm -Pulse Rate (60-100) 75 Lying -Blood Pressure (90/60-120/80) 138/53 H -Extremity Use Right Arm -Pulse Rate (60-100) 75 Intake & Output: Intake and Output for Last 24 Hours 02/10/21 02/11/21 02/12/21 23:59 23:59 23:59 Intake Total 840 / 840 836 / 836 360 / 360 Output Total 1000 / 1000 Balance -160 / -160 836 / 836 360 / 360 Lab / Micro Data Result Diagrams: 02/11/21 05:40 02/11/21 05:40 Micro: Microbiology 02/05/21 12:15 Stool Stool Occult Blood (VALARIE) - Final Occult Blood Positive Physical Exam Resp normal respiratory effort, normal air movement and clear to auscultation bilater ally Effort and Inspection: able to speak in complete sentences Cardio regular rate, regular rhythm, S1 normal heart sound, S2 normal heart sound and n o gallops GI soft to palpation, non-tender and non-distended GI Narrative: nl BS's Extremity Extremity Narrative: He has swelling in the R medial thigh near the groin and it is ropey. It is some what painful. No pain in the calf. the medial thigh is nor red and it is not warm to touch. There is still some bruising in the thigh. Assessment & Plan Assessment/Plan (1) Closed intertrochanteric fracture of right hip: QUALIFIERS: Encounter type: subsequent encounter Fracture alignment: nondisplaced Fracture healing: with routine healing Qualified Code(s): S72.144D - Nondisplaced intertrochanteric fracture of right femur, subsequent encounter for closed fracture with routine healing PLAN: Continue therapy (2) History of open reduction and internal fixation (ORIF) procedure: PLAN: Intramedullary clint (3) Physical debility: PLAN: Continue therapy (4) Acute on chronic anemia: PLAN: Hemoglobin is stable (5) Urine retention: PLAN: Resolved with the addition of Flomax to his drug regimen. He initially had a little lightheadedness and a drop in blood pressure but this is resolved. (6) Hypertension: QUALIFIERS: Hypertension type: essential hypertension Qualified Code(s): I10 - Essential (primary) hypertension PLAN: Well-controlled (7) BPH (benign prostatic hyperplasia): QUALIFIERS: Lower urinary tract symptom detail: post-void dribbling Lower urinary tract symptom presence: symptoms present Qualified Code(s): N40.1 - Benign prostatic hyperplasia with lower urinary tract symptoms; N39.43 - Post-void dribbling PLAN: On Flomax (8) Right thigh pain: PLAN: Hias pain initially was in the R anterior thigh which is not uncommon and is due to Quadriceps spasm however the swelling in the thigh is increased today and the pain is in the medial thigh at the proximal end. Only on ASA per ortho for DVT prophylaxis. Venous US of the RLE ordered. Charges/Coding Visit Charges Inpatient E&M: 56740 Subs Hosp L2
--- NOTE | 2021-02-12 12:05 | VDLE_ITS ---
Reason For Study: pain RIGHT GSV is normal. CFV is compressible, spontaneous, phasic, competent and demonstrates normal augmentation. FV is compressible, spontaneous, phasic, competent and demonstrates normal augmentation. POP V is compressible, spontaneous, phasic, competent and demonstrates normal augmentation. T/P Trunk is compressible. PTV is compressible. RT PerV is compressible. Procedure This is a venous duplex using B-mode, color flow and spectral Doppler. Exam performed portable in patient room. The exam was diagnostic. A preliminary report was called and/or faxed to the pt's nurse. VL/Venous Duplex US, Unilateral Interpretation Summary Deep veins of the right lower extremity are patent and compressible segmentally . There is no evidence of right lower extremity deep vein thrombosis. Valvular competence murtaza ears intact within the proximal deep venous system on the right . The right great saphenous vein a ppears patent and compressible segmentally. Ordering Physician: Pauline Ramesh Performed By: Gustavo Garsia, RVT
--- NOTE | 2021-02-12 13:19 | CASEMGMT ---
Social Work IDT met with patient for Team meeting. Discussed patient's progress in therapy and nursing. Pt progressing well and requesting to DC. IDT agreeable to DC 02/14. Pt requests HHC vs OP therapy. Pt agreeable to referral to [facility] PT/OT. Referral made. Pt has no DME needs. Dtr to transport. Plan: DC home with dtr 02/14, [facility] PT/OT KEELY DunnW
[2021-02-12 13:45] VITALS: PULSE 76; RESP 16
[2021-02-12] MEDS: Ipratropium/Albuterol Sulfate 3 ML AMPUL.NEB INHALATION (13:45)
[2021-02-12] MEDS: Tamsulosin HCl 0.4 MG Capsule PO (17:10)
[2021-02-12 20:39] VITALS: BP 129/56; PULSE 74; RESP 18; TEMP 36.9; O2SAT 99
--- NOTE | 2021-02-13 01:12 | NURSING ---
Reviewed and agree with COLOR BUFFER assessment.
[2021-02-13] MEDS: Acetaminophen 500 MG Tablet 1000 MG PO ×3 (05:24→22:22)
[2021-02-13 06:49] VITALS: PULSE 66; RESP 16; O2SAT 92
[2021-02-13] MEDS: Ipratropium/Albuterol Sulfate 3 ML AMPUL.NEB INHALATION ×2 (06:49→20:47)
[2021-02-13 07:01] VITALS: O2SAT 95
[2021-02-13 08:00] VITALS: BP 147/58; PULSE 68; RESP 16; TEMP 36.6; O2SAT 98
[2021-02-13] MEDS: Multivitamins,Therapeutic Tablet 1 TABLET PO (08:11)
[2021-02-13] MEDS: Aspirin 81 MG TAB.CHEW PO ×2 (08:11→17:42)
[2021-02-13] MEDS: Arthritis Pain Compound 60 CLICK TUBE TOPICAL ×2 (08:11→22:23)
[2021-02-13] MEDS: Famotidine 20 MG Tablet PO ×2 (08:12→22:23)
[2021-02-13] MEDS: Fluticasone Propion/Salmeterol 250-50 Inhaler 1 PUFF INHALATION ×2 (08:12→22:22)
[2021-02-13] MEDS: Ipratropium Bromide 0.06% NASAL SPRAY 2 SPRAY NASAL ×2 (08:13→22:23)
[2021-02-13] MEDS: traMADol 50 MG Tablet PO ×2 (08:17→18:56)
[2021-02-13] MEDS: Tamsulosin HCl 0.4 MG Capsule PO (17:42)
[2021-02-13 19:30] VITALS: BP 123/51; PULSE 68; RESP 16; TEMP 36.3; O2SAT 97
[2021-02-13 20:00] VITALS: PULSE 68
[2021-02-13 20:47] VITALS: PULSE 74; RESP 16
[2021-02-13] MEDS: Senna/Docusate Sodium 1 Tablet 2 TABLET PO (22:23)
[2021-02-14] MEDS: Acetaminophen 500 MG Tablet 1000 MG PO (05:59)
[2021-02-14 07:23] VITALS: PULSE 73; RESP 18
[2021-02-14] MEDS: Ipratropium/Albuterol Sulfate 3 ML AMPUL.NEB INHALATION (07:23)
[2021-02-14] MEDS: Fluticasone Propion/Salmeterol 250-50 Inhaler 1 PUFF INHALATION (07:44)
[2021-02-14] MEDS: Famotidine 20 MG Tablet PO (07:44)
[2021-02-14] MEDS: Ipratropium Bromide 0.06% NASAL SPRAY 2 SPRAY NASAL (07:44)
[2021-02-14] MEDS: traMADol 50 MG Tablet PO (07:44)
[2021-02-14] MEDS: Multivitamins,Therapeutic Tablet 1 TABLET PO (07:44)
[2021-02-14] MEDS: Aspirin 81 MG TAB.CHEW PO (07:44)
[2021-02-14] MEDS: Arthritis Pain Compound 60 CLICK TUBE TOPICAL (07:44)
[2021-02-14] MEDS: Senna/Docusate Sodium 1 Tablet 2 TABLET PO (07:45)
[2021-02-14 08:39] VITALS: BP 122/52; PULSE 61; RESP 16; TEMP 36.1; O2SAT 98
--- NOTE | 2021-02-14 11:40 | DCINST_ITS ---
Discharge Instructions Diet Discharge Diet: No restrictions Activity Discharge Activity: May Not Drive Ice area for (Minutes): 15 Weight Bearing Status: Full weight bearing Lifting Restrictions: 10 lbs Keep extremity elevated above heart level: Right Leg Dressing / Incision Call your doctor if your incision/area has: Continuous Slow Oozing, Sudden Increased Bleeding, Increased Pain/ Swelling, Increased Redness, Foul Smelling Discharge and Swelling at the incision site Call your doctor if you observe: Fever of 101 or Higher, Inability to urinate, Shortness of breath, Dizziness, Fainting spells, Chest pain, Increased palpitations (irregular heartbeat), Calf discomfort and Uncontrolled pain Additional Dressing/Incision Instructions:: You can leave the incision open to air now. Clean once a day with soap and water. Follow Up Care Please Follow Up With: Bala Fournier MD When: 5-7 days Test Results: Test results from this visit will be discussed in further detail at your follow-up appointment, if applicable. Pending Tests Upon Discharge: none Discharge Plan Admission Admit Date/Time: 02/03/21 16:16 Primary Reason for Your Visit: Physical debility due to R hip fracture/repair. Attending Provider: Pauline Ramesh Primary Care Provider: Bala Fournier Consulting Providers: Peter Diaz Instructions Additional Instructions / Restrictions: 1. Hip Precautions a. No flexing of the hip greater than 90 degrees b. Do not cross your legs c. No twisting 2. Use your walker until the home physical therapist tells it is OK to progress to a cane 3. You will need to follow up with Dr. Peter Diaz (the surgeon) within 2 weeks after discharge. 4. It has been a real pleasure having you on the rehab unit. It was tempting to hang on to you a while longer but I know you miss your daughter and she misses you. If you have any questions after you leave please do not hesitate to call me. cell ([phone]) office ([phone]) If you ever need rehab in the future Colleen I hope you will come back to us. Stay well and God bless. Discharge Orders/Prescriptions Prescriptions: New acetaminophen 500 mg Tablet 1,000 mg PO Q8 Qty: 100 RF: 0 famotidine 20 mg Tablet 20 mg PO BID Qty: 60 RF: 0 tramadol 50 mg Tablet 50 mg PO Q6H PRN MDD 4 tabs PRN (Reason: Pain Score 1-10) 7 Days Qty: 42 RF: 0 tamsulosin 0.4 mg Capsule 0.4 mg PO DAILY@1730 Qty: 30 RF: 0 ipratropium bromide 42 mcg (0.06 %) [place],Non-Aerosol 2 spray NASAL BID Qty: 42 RF: 0 Arthritis Pain Compound 2 click topical BID Qty: 0 RF: 0 Continued albuterol sulfate 1 PUFF inhaler 2 puff INHALATION Q4H PRN PRN (Reason: short of breath) RF: 0 Para 2 1 tab PO.IVFORM TID RF: 0 Complex P 1 tablet PO.IVFORM TID RF: 0 Exf 1 tab PO.IVFORM TID RF: 0 Nt Bacta 1 tab PO.IVFORM TID RF: 0 Oxypower 2 tab PO.IVFORM TID RF: 0 Para1 1 tab PO.IVFORM TID RF: 0 Pel Immune 1 tab PO.IVFORM TID RF: 0 Permilung 2 tab PO.IVFORM TID RF: 0 Pro-Jackie 1 tab PO.IVFORM TID RF: 0 Xpleen 1 tab PO.IVFORM TID RF: 0 ipratropium-albuterol 0.5 mg-3 mg(2.5 mg base)/3 mL solution for nebulization 3 ml INHALATION Q8H PRN (Reason: shortness of breath) Qty: 270 RF: 3 aspirin 81 mg tablet,chewable 81 mg PO BIDCM Qty: 0 RF: 0 budesonide-formoterol [Symbicort] 160-4.5 mcg/actuation HFA aerosol inhaler 2 puff INHALATION Q12H Qty: 10.2 RF: 11 Discontinued albuterol sulfate 2.5 mg /3 mL (0.083 %) solution for nebulization 2.5 mg INHALATION Q4H PRN (Reason: sob) RF: 0 Dulera 200-5 mcg/actuation HFA aerosol inhaler 2 puff INHALATION DAILY RF: 0 beclomethasone dipropionate 80 mcg/actuation Hfa Aerosol Breath Activated 1 inh INHALATION BID RF: 0 acetaminophen [Tylenol] 325 mg Tablet 650 mg PO Q6H PRN PRN (Reason: Pain Score 1-10/Temp > 100.7 F) Qty: 30 RF: 0 losartan 25 mg tablet 25 mg PO DAILY RF: 0 No Action Gastro-ulc 1 tablet PO.IVFORM DAILY RF: 0 Referrals / Follow Up: Bala Fournier MD [Primary Care Provider] - Disposition Disposition (needs filled in before D/C Order can be placed): Home Health Service
--- NOTE | 2021-02-14 11:45 | DS.PCM_ITS ---
Providers Date of Admission: 02/03/21 Date of Discharge: 02/14/21 Primary Care Physician: MD Dr. Peter Lomeli Reason For Visit: RIGHT ORIF Diagnosis Discharge Diagnosis (1) Closed intertrochanteric fracture of right hip: Status: Acute Code(s): S72.141A - Displaced intertrochanteric fracture of right femur, initial encounter for closed fracture Qualifiers: Encounter type: subsequent encounter Fracture alignment: nondisplaced Fracture healing: with routine healing Qualified Code(s): S72.144D - Nondisplaced intertrochanteric fracture of right femur, subsequent encounter for closed fracture with routine healing (2) History of open reduction and internal fixation (ORIF) procedure: Status: Acute Code(s): Z98.890 - Other specified postprocedural states (3) Physical debility: Status: Acute Code(s): R53.81 - Other malaise (4) Acute on chronic anemia: Status: Acute Code(s): D64.9 - Anemia, unspecified (5) Urine retention: Status: Resolved Code(s): R33.9 - Retention of urine, unspecified (6) Hypertension: Status: Chronic Code(s): I10 - Essential (primary) hypertension Qualifiers: Hypertension type: essential hypertension Qualified Code(s): I10 - Essential (primary) hypertension (7) BPH (benign prostatic hyperplasia): Status: Chronic Code(s): N40.0 - Benign prostatic hyperplasia without lower urinary tract symptoms Qualifiers: Lower urinary tract symptom presence: symptoms present Lower urinary tract symptom detail: post-void dribbling Qualified Code(s): N40.1 - Benign prostatic hyperplasia with lower urinary tract symptoms; N39.43 - Post-void dribbling (8) Right thigh pain: Status: Acute Code(s): M79.651 - Pain in right thigh Medications at Discharge Home Medications albuterol sulfate 2 puff INHALATION Q4H PRN PRN 03/11/18 Complex P 1 tablet PO.IVFORM TID 01/31/21 Exf 1 tab PO.IVFORM TID 01/31/21 Gastro-ulc 1 tablet PO.IVFORM DAILY 01/31/21 Nt Bacta 1 tab PO.IVFORM TID 01/31/21 Oxypower 2 tab PO.IVFORM TID 01/31/21 Para 2 1 tab PO.IVFORM TID 01/31/21 Para1 1 tab PO.IVFORM TID 01/31/21 Pel Immune 1 tab PO.IVFORM TID 01/31/21 Permilung 2 tab PO.IVFORM TID 01/31/21 Pro-Jackie 1 tab PO.IVFORM TID 01/31/21 Xpleen 1 tab PO.IVFORM TID 01/31/21 Arthritis Pain Compound 2 click TOPICAL BID #0 02/14/21 acetaminophen 1,000 mg PO Q8 #100 tab 02/14/21 aspirin 81 mg PO BIDCM #0 tab 02/14/21 budesonide-formoterol [Symbicort] 2 puff INHALATION Q12H #10.2 g 02/14/21 famotidine 20 mg PO BID #60 tab 02/14/21 ipratropium bromide 2 spray NASAL BID #42 mcg 02/14/21 ipratropium-albuterol 3 ml INHALATION Q8H PRN #270 ml 02/14/21 tamsulosin 0.4 mg PO DAILY@1730 #30 cap 02/14/21 tramadol 50 mg PO Q6H PRN PRN 7 Days #42 tab MDD 4 tabs 02/14/21 Hospital Course Operations None Procedures None Summary of Care Provided Minutes Spent on Discharge: 43 Hospital Course: EV BROWN, is a 80 Wander M who presented to the emergency department at [facility] on 01/31/2021 complaining of right hip pain following a mechanical fall. His past medical history is significant for asthma, hypertension, hyperlipidemia, history of prostate cancer, sleep apnea treated with BiPAP, anxiety and chronic anemia ( no cause given). XRAY in the ED showed a R hip fracture. He was seen by Dr. Peter Brown and taken to surgery on 02/01/21 for ORIF and placement of an intramedullary clint. He was transferred to the inpt acute rehab floor at [facility] on 02/03/21 for > 3 hours of therapy to restore function at or near his level prior to the fall/hip fracture. The HGB dropped to a low of 8.0 following surgery and it is currently stable at 8.3. The HGB at presentation to the hospital was low at 11.8. Ev was retaining urine and this resolved with the addition of Flomax to his drug regimen. He initially had a little light headedness in the AM but this resolved with better hydration. His BUN/CREAT ratio is always high and we encouraged him often to increase his water intake. It started improving a few days prior to DC and he had no lightheadedness. Ev had clear lungs at presentation to the rehab unit and then have remained CTA with good air exchange. Despite being clear he requests a duoneb aerosol every 6 hours or so. He had some edema that was more than I expected post-op in the R thigh and he complained of pain in the upper medial R thigh. A venous US was ordered and showed no evidence of DVT. Colleen did quite well in therapy. Prior to discharge she was able to do 7 stands in 30 seconds. He had ambulated 405 feet with a wheeled walker with standby assist on even surfaces and up to 200 feet at standby assist on uneven/various surfaces. He was able to complete all his activities of daily living at standby assist/supervision. We were able to control his pain with scheduled Tylenol, compounded ar thritis cream containing Baclofen, Lidocaine and voltaren) to the R thigh and Tramadol 50 mg q 6 H PRN. Prior to DC his prescriptions were sent to the retail pharmacy and he had them prior to DC home. He elected to have HHC and this was arranged by the [facility]. He was refferred to [facility] for PT/OT. He had no DME needs at DC and his dtr transported him home. Physical Exam Const alert, oriented x3 and no apparent distress Constitutional Narrative: Sitting in the recliner at the bedside. General Appearance: cooperative, well kempt and well developed HEENT normocephalic and moist oral mucous membranes Eyes PERRL and EOMs intact bilaterally Sclera: sclera normal Neck Neck Narrative: BL carotid bruits Carotids: normal carotid upstroke and other Other Details: Carotid pulse volume is normal Chest inspection of chest normal Chest Narrative: Mild gynecomastia since he has had a bilateral orchiectomy for prostate cancer Chest: symmetrical chest wall rise Resp normal respiratory effort, normal air movement, no retractions, no use of accessory muscles and clear to auscultation bilaterally Resp Narrative: he was on the Nu-step and had no tachypnea and no conversational dyspnea. Effort and Inspection: able to speak in complete sentences Auscultation: diminished lung sounds; Negative for rales or wheezes Cardio regular rate, regular rhythm, S1 normal heart sound, S2 normal heart sound and no gallops Cardio Narrative: no change in the MM since admission. Heart Sounds: murmur GI normal to inspection, nondistended, normoactive bowel sounds, soft to palpation, non-tender and non-distended GI Narrative: Increased tympany, no guarding with palpation. Extremity no calf tenderness Extremity Narrative: No clubbing. Radial pulses are +2 bilaterally. Dorsalis pedis pulse on the right is +2 and not palpable on the left. Posterior tibial is also not palpable on the left. The popliteal pulse is +2 and the left femoral pulses +2 without bruits. Good capillary refill. There is persistent edema of the R thigh and some ankle edema. General Extremity: edema bilateral (Bilateral pitting edema limited to the ankle, medial side.) Skin no rashes or lesions noted Skin Narrative: He has an incision in the right hip due to recent ORIF with placement of an intramedullary nail. The incision is intact with no dehiscence, no erythema, no discharge and no increased warmth to touch. Rashes: no rashes Neuro CN's II-XII intact bilaterally and no focal motor deficits Neuro Narrative: He complains of paresthesias in the left hand which come and go. It sometimes awakens him at night. He states that it involves all 5 fingers. Psych affect normal Appearance: grossly normal, appropriate and well kempt Attitude: calm Activity / Motor Behavior: appropriate eye contact Speech: normal speech Mood & Affect: euthymic mood Thought Process: normal thought process Weight / BMI Weight Weight: 136 lb 7.458 oz Body Mass Index (BMI) 23.8 ABG / Lab / Microbiology Data Result Diagrams: 02/11/21 05:40 02/11/21 05:40 Microbiology: Microbiology 02/05/21 12:15 Stool Stool Occult Blood (VALARIE) - Final Occult Blood Positive D/C Instructions Discharge Diet: No restrictions Ice area for (Minutes): 15 Weight Bearing Status: Full weight bearing Keep extremity elevated above heart level: Right Leg Call your doctor if your incision/area has: Continuous Slow Oozing, Sudden Increased Bleeding, Increased Pain/ Swelling, Increased Redness, Foul Smelling D ischarge and Swelling at the incision site Call your doctor if you observe: Fever of 101 or Higher, Inability to urinate, Shortness of breath, Dizziness, Fainting spells, Chest pain, Increased palpitations (irregular heartbeat), Calf discomfort and Uncontrolled pain Additional Dressing/Incision Instructions: You can leave the incision open to air now. Clean once a day with soap and water. Pending Tests Upon Discharge: none Please Follow Up With: Bala Fournier MD When: 5-7 days Meaningful Use Info Meaningful Use Diagnoses (Choose all that apply): None applicable Discharge Plan Admission Admit Date/Time: 02/03/21 16:16 Primary Reason for Your Visit: Physical debility due to R hip fracture/repair. Attending Provider: Pauline Ramesh Primary Care Provider: Bala Fournier Consulting Providers: Peter Brown Instructions Additional Instructions / Restrictions: 1. Hip Precautions a. No flexing of the hip greater than 90 degrees b. Do not cross your legs c. No twisting 2. Use your walker until the home physical therapist tells it is OK to progress to a cane 3. You will need to follow up with Dr. Peter Brown (the surgeon) within 2 weeks after discharge. 4. It has been a real pleasure having you on the rehab unit. It was tempting to hang on to you a while longer but I know you miss your daughter and she misses you. If you have any questions after you leave please do not hesitate to call me. cell ([phone]) office ([phone]) If you ever need rehab in the future Colleen I hope you will come back to us. Stay well and God bless. Discharge Orders/Prescriptions Prescriptions: New acetaminophen 500 mg Tablet 1,000 mg PO Q8 Qty: 100 RF: 0 famotidine 20 mg Tablet 20 mg PO BID Qty: 60 RF: 0 tramadol 50 mg Tablet 50 mg PO Q6H PRN MDD 4 tabs PRN (Reason: Pain Score 1-10) 7 Days Qty: 42 RF: 0 tamsulosin 0.4 mg Capsule 0.4 mg PO DAILY@1730 Qty: 30 RF: 0 ipratropium bromide 42 mcg (0.06 %) [place],Non-Aerosol 2 spray NASAL BID Qty: 42 RF: 0 Arthritis Pain Compound 2 click topical BID Qty: 0 RF: 0 Continued albuterol sulfate 1 PUFF inhaler 2 puff INHALATION Q4H PRN PRN (Reason: short of breath) RF: 0 Para 2 1 tab PO.IVFORM TID RF: 0 Complex P 1 tablet PO.IVFORM TID RF: 0 Exf 1 tab PO.IVFORM TID RF: 0 Nt Bacta 1 tab PO.IVFORM TID RF: 0 Oxypower 2 tab PO.IVFORM TID RF: 0 Para1 1 tab PO.IVFORM TID RF: 0 Pel Immune 1 tab PO.IVFORM TID RF: 0 Permilung 2 tab PO.IVFORM TID RF: 0 Pro-Jackie 1 tab PO.IVFORM TID RF: 0 Xpleen 1 tab PO.IVFORM TID RF: 0 ipratropium-albuterol 0.5 mg-3 mg(2.5 mg base)/3 mL solution for nebulization 3 ml INHALATION Q8H PRN (Reason: shortness of breath) Qty: 270 RF: 3 aspirin 81 mg tablet,chewable 81 mg PO BIDCM Qty: 0 RF: 0 budesonide-formoterol [Symbicort] 160-4.5 mcg/actuation HFA aerosol inhaler 2 puff INHALATION Q12H Qty: 10.2 RF: 11 Discontinued albuterol sulfate 2.5 mg /3 mL (0.083 %) solution for nebulization 2.5 mg INHALATION Q4H PRN (Reason: sob) RF: 0 Dulera 200-5 mcg/actuation HFA aerosol inhaler 2 puff INHALATION DAILY RF: 0 beclomethasone dipropionate 80 mcg/actuation Hfa Aerosol Breath Activated 1 inh INHALATION BID RF: 0 acetaminophen [Tylenol] 325 mg Tablet 650 mg PO Q6H PRN PRN (Reason: Pain Score 1-10/Temp > 100.7 F) Qty: 30 RF: 0 losartan 25 mg tablet 25 mg PO DAILY RF: 0 No Action Gastro-ulc 1 tablet PO.IVFORM DAILY RF: 0 Referrals / Follow Up: Bala Fournier MD [Primary Care Provider] - Disposition Disposition (needs filled in before D/C Order can be placed): Home Health Service Charges/Coding Visit Charges Inpatient E&M: [id number] Disch Hosp
--- NOTE | 2021-02-14 13:30 | NURSING ---
Patient and daughter aware of discharge instructions. Verbalized understanding to wound care, medication instruct, and appointments.
[2021-02-14 13:45] VITALS: BP 122/69; PULSE 61; RESP 17; TEMP 36.1; O2SAT 98
== END 2021-02-14 13:45 | disposition home health service (06) | DRG 561 ==
PROVIDERS: Admitting Provider Internal Medicine; PCP Family Medicine; Visit Provider Internal Medicine
DX: S72.144D Nondisplaced intertrochanteric fracture of right femur, subsequent encounter for closed fracture with routine healing (principal); W18.30XD Fall on same level, unspecified, subsequent encounter; E78.5 Hyperlipidemia, unspecified; I10 Essential (primary) hypertension; G47.30 Sleep apnea, unspecified; D64.9 Anemia, unspecified; J44.9 Chronic obstructive pulmonary disease, unspecified; N40.1 Benign prostatic hyperplasia with lower urinary tract symptoms; R33.8 Other retention of urine; N39.43 Post-void dribbling; Z85.46 Personal history of malignant neoplasm of prostate; Z79.899 Other long term (current) drug therapy; Z79.82 Long term (current) use of aspirin
CPT/HCPCS: 36415; 80048; 80053; 82274; 82962; 83036; 83735; 84443; 85014; 85018; 85027; 93971; 94640; 97110; 97116; 97162; 97166; 97530; 97535; 97802; 99251; A4216; G0463